=== PATIENT | female | born 1945 | race Caucasian/White ===

== ENCOUNTER 2023-05-10 09:46 | Inpatient (IN) | payer OTHER, SELFPAY ==
[2023-05-08] VITALS (14 sets, daily range): BP systolic 123–156; BP diastolic 71–105; BMI 28.0; BMI 26.6
[2023-05-08 10:52] LABS: Glucose - Point of Care 140 mg/dl (70-99)
[2023-05-08 11:24] LABS: % Basophils 0.6 % (0-2); % Eosinophils 0.3 % (0-6); % Immature Granulocytes 0.5 % (0-0.5); % Lymphocytes 5.9 % (20.5-51.1); % Monocytes 8.4 % (1.7-9.3); % Neutrophils 84.3 % (42.2-75.2); Absolute Basophils 0.1 10^3/uL (0-0.2); Absolute Immature Granulocytes 0.1 10^3/uL (0-0.05); Absolute Lymphocytes 0.6 10^3/uL (1.2-3.4); Absolute Monocytes 0.8 10^3/uL (0.1-0.6); Hematocrit 35.4 % (37.0-47.0); Hemoglobin 12.7 g/dL (12.0-16.0); Mean Corp Hgb Conc. 35.9 g/dL (33.0-37.0); Mean Corpuscular Volume 94.9 fL (81.0-99.0); Mean Platelet Volume 9.4 fL (7.4-10.4); Nucleated Red Blood Cells % 0 %; Platelet Count 250 10^3/uL (130-400); Red Blood Cell Count 3.73 10^6/uL (4.20-5.40); Red Cell Dist. Width 11.9 % (11.5-14.5); White Blood Cell Count 9.5 10^3/uL (4.8-10.8)
[2023-05-08 11:29] LABS: Lactic Acid 1.1 mmol/L (0.7-2.0)
[2023-05-08 11:30] LABS: ALT (SGPT) 16 U/L (0-35); AST (SGOT) 32 U/L (14-36); Albumin 4.4 g/dl (3.5-5.0); Alkaline Phosphatase 67 U/L (38-126); Blood Urea Nitrogen 12 mg/dl (7-17); Calcium 9.1 mg/dl (8.4-10.2); Carbon Dioxide 27 mmol/L (22-30); Chloride 93 mmol/L (98-107); Estimated Creatinine Clearance 51 ml/min; Glucose 133 mg/dl (70-99); Potassium 3.9 mmol/L (3.5-5.1); Sodium 127 mmol/L (135-145); Total Bilirubin 0.8 mg/dl (0.2-1.3); Total Protein 7.1 g/dl (6.3-8.2); eGFR > 60.00
[2023-05-08 11:31] LABS: COVID-19 Antigen Positive (Negative)
[2023-05-08 11:36] LABS: INR 0.97; PT 12.6 Sec (11.4-14.6)
--- NOTE | 2023-05-08 11:47 | ED.GENMED ---
History of Present Illness
General
Chief Complaint: Weakness
Time Seen by Provider: 05/08/23 10:38
Travel History
Have you had any contact with someone who has COVID-19?: No
Do you have any symptoms of coronavirus? Fever > 100 degrees, chills, cough, shortness of breath, sore throat, loss of taste or smell, muscle aches, or headache?: Yes
Symptoms:: 100.6
History of Present Illness
History of Present Illness:
78-year-old female with history of hypertension hyperlipidemia, and mitral valve prolapse presents to the emergency department via EMS from [facility] due to generalized weakness and intermittent confusion over the past several
days. No reported chest pain or shortness of breath. The patient is noted to be febrile on arrival. She is generally a poor historian and is unable to give me any details regarding her symptoms. According to her family she does have some mild
baseline confusion but is acutely worse in the past 48 hours.
Past History
Past History
ED Past Medical History: Other (Hyperlipidemia, hypertension, chronic bronchitis, diverticulosis, irritable bowel syndrome, kidney stones, osteoarthritis, colon polyps, ovarian cysts, urinary tract infection, and C. difficile, mitral bowel prolapse )
ED Past Surgical History: Appendectomy and Other (Multiple bowel resections)
Social History
Tobacco: Non-smoker
Alcohol: None
Drug: None
Personal:
Living: with family
Employment: Retired
Family History
Family History: Hypertension
Review of Systems
Review of Systems
Allergies reviewed?: Yes
All Other Systems: ROS reviewed and negative except as documented in HPI and ROS
Phy Exam
Physical Exam
Physical Exam:
GEN: Well appearing, NAD, WDWN
HEENT: Oral mucosa moist, no scleral icterus
Cardiac: Regular rate and rhythm, no murmurs
Lung: No respiratory distress, no tachypnea, lungs clear to auscultation bilaterally
MSK: No gross deformity or injuries
Skin: Good color, no pallor or jaundice, no rashes
Neuro: Alert, oriented to place, disoriented to time and events, follows commands, moves all extremities without restriction
Psych: Calm, cooperative
Course
Orders/Labs/Results
Orders:
Orders
05/08/23 10:48
Electrocardiogram (*1) Urgent
Reason for Study: Other
Other Reason for Exam: sepsis
EKG- Treatment ONCE
Straight cath- Treatment ONCE
Acetaminophen [Tylenol] 650 mg PO NOW STA
CR Chest - 2 Views Urgent
Comment:
Reason For Exam: sepsis
05/08/23 10:49
CT Head W/o Iv Contrast Urgent
Comment:
Reason For Exam: AMS
05/08/23 11:05
Complete Blood Count/With Diff Urgent
Comprehensive Metabolic Panel Urgent
Lactic Acid Q4H
Comment: CANCEL 2nd LACTIC ACID IF 1st LACTIC ACID IS LESS THAN 2
Prothrombin Time Urgent
Serum Osmolality Urgent
Comment: ADD ON
Blood Culture Q30M
BRANDON Source: Blood/Venous
Specimen Description:
05/08/23 11:09
COVID-19 Antigen Urgent
Source: Nasal Swab
Influenza A+B Rapid Molecular Urgent
BRANDON Source: Nasal Swab
Specimen Description:
05/08/23 12:14
Add On- LAB Urgent
Tests Added?: serum osmolality
05/08/23 12:29
Urinalysis Reflex To Culture Urgent
Date Specimen was Collected: 05/08/23
Time Specimen was Collected: 11:59
Urine Microscopic Reflex Cult Urgent
Blood Culture Q30M
BRANDON Source: Blood/Venous
Specimen Description:
Urine Culture Urgent
BRANDON Source: U
Specimen Description:
Date Specimen was Collected: 05/08/23
Time Specimen was Collected: 11:59
05/08/23 13:05
Acetaminophen [Tylenol] 650 mg .ROUTE .STK-MED ONE
05/08/23 13:06
Acetaminophen [Tylenol] 1,000 mg .ROUTE .STK-MED ONE
05/08/23 14:24
0.9% Sodium Chloride 500 ml [Nss] 500 ml IV BOLUS
05/08/23 15:13
Admit/Transfer Patient As Directed
Co-Sign Provider:
Level of Care: Observation services
Assign to:: Telemetry
Physician / Group: Mayda/Hospitalist
Diagnosis: Hyponatremia, COVID-19
Reason for Telemetry: Arrhythmia
Date to Stop Telemetry: 05/11/23
Time to Stop Telemetry: 11:00
05/08/23 15:17
Code Status As Directed
Resuscitation Status: Full Code
05/11/23 11:00
DC Protocol for Telemetry ONCE
Abnormal Lab Results
05/08/23 05/08/23 05/08/23
10:50 11:05 11:09
RBC 3.73 L 10^6/uL
(4.20-5.40)
Hct 35.4 L %
(37.0-47.0)
MCH 34.0 H pg
(27.0-31.0)
Abs Immat Gran (auto) 0.1 H 10^3/uL
(0-0.05)
Absolute Neuts (auto) 8.0 H 10^3/uL
(1.4-6.5)
Absolute Lymphs (auto) 0.6 L 10^3/uL
(1.2-3.4)
Absolute Monos (auto) 0.8 H 10^3/uL
(0.1-0.6)
Neutrophils % 84.3 H %
(42.2-75.2)
Lymphocytes % 5.9 L %
(20.5-51.1)
Sodium 127 L mmol/L
(135-145)
Chloride 93 L mmol/L
(98-107)
Glucose 133 H mg/dl
(70-99)
Serum Osmolality 272 L mOsm/kg
(275-300)
Urine Ketones
Ur Occult Blood Reflex
Urine Nitrite (Reflex)
Urine RBC
Urine Bacteria (Reflex)
SARS-CoV-2 Antigen Positive A
(Negative)
POC Glucose 140 H mg/dl
(70-99)
05/08/23
12:29
RBC
Hct
MCH
Abs Immat Gran (auto)
Absolute Neuts (auto)
Absolute Lymphs (auto)
Absolute Monos (auto)
Neutrophils %
Lymphocytes %
Sodium
Chloride
Glucose
Serum Osmolality
Urine Ketones 1+ A
(Negative)
Ur Occult Blood Reflex Trace A
(Negative)
Urine Nitrite (Reflex) Positive A
(Negative)
Urine RBC 3-6 A /HPF
(0-2)
Urine Bacteria (Reflex) Many A
(Negative)
SARS-CoV-2 Antigen
POC Glucose
05/08/23 11:05
05/08/23 11:05
Vital Signs
Initial and Last Documented VS:
Initial Vital Signs
BP
144/79
05/08/23 10:39
Last Documented Vital Signs
Temp Pulse Resp BP Pulse Ox
98.7 F 75 16 128/76 97
05/08/23 15:33 05/08/23 15:45 05/08/23 15:45 05/08/23 15:00 05/08/23 15:33
MDM/Problems Addressed
MDM/Problems Addressed:
78-year-old female presents with generalized weakness and confusion. She is found to be COVID-positive as well as hyponatremic. Hyponatremia appears to be acute, likely secondary to poor p.o. intake in the setting of COVID. Due to her acute
encephalopathy and hyponatremia we will admit to the hospitalist service for further management. Do not feel that there is any indication for hypertonic saline at this time, she is not hypoxic thus there is no indication for steroids in the setting
of acute COVID infection
Comment
Comment:
EKG independently interpreted by me shows normal sinus rhythm at a rate of [address] depressions, however patient motion artifact severely limits interpretation
Chest x-ray independently interpreted by me shows no acute cardiopulmonary abnormalities
*Critical Care Note
Total Time (30-74mins, 75-104mins- exclusive of procedures): Not Applicable
ED Attending Note
-
Portions of this chart may have been created with voice recognition software.� Occasional wrong word or��sound alike� substitutions may have occurred due to the inherent limitations of voice recognition software.
Discharge Plan
Departure
Patient Disposition: Admit
Date of Disposition: 05/08/23
Time of Disposition: 12:52
Admit to: Med/Surg
Presentation/result/management discussed w/ accepting MD/DO: Hospitalist
Discharge Problem:
Acute hyponatremia, COVID-19
Interventions
Interventions:
*Risk Screen - Suicide Last Done: 05/08/23 15:33
*General Assessment Last Done: 05/08/23 10:42
*Neglect/Abuse Screening Last Done: 05/08/23 12:00
ED- Fall Risk Assessment Last Done: 05/08/23 12:00
*ED COVID-19 Vaccine History Last Done: 05/08/23 10:42
ED- Cardiac Assessment Last Done: 05/08/23 15:33
ED- Neurological Assessment Last Done: 05/08/23 15:33
ED- Pulmonary Assessment Last Done: 05/08/23 15:33
[2023-05-08 12:37] LABS: Urine Albumin Negative (Neg - Trace); Urine Bilirubin Negative (Negative); Urine Character Slightly Cloudy (Clear); Urine Color Yellow; Urine Glucose Negative (Negative); Urine Ketone 1+ (Negative); Urine Leukocyte Negative (Negative); Urine Nitrite Positive (Negative); Urine Occult Blood Trace (Negative); Urine Urobilinogen Negative (Neg - 1+)
[2023-05-08 12:41] LABS: Osmolality Serum 272 mOsm/kg (275-300)
[2023-05-08 12:46] LABS: Urine Bacteria Many (Negative); Urine White Cell 0-2 /HPF (0-5)
[2023-05-08] MEDS: TYLENOL 650 MG PO (13:08)
--- NOTE | 2023-05-08 14:04 | HPS.HSE ---
Family Physician
-
Family Physician: Kwasi Dunn
Chief Complaint
-
weakness
History of Present Illness
The patient is an 78 yo woman with PMH significant for HLD, HTN, IBS, OA, MVP, hypothyroidism, presenting to the ED from [facility] due to generalized weakness and intermittent confusion over the past several days. Mild baseline
confusion per family, though worse in the past 48 hours. The patient said she is being treated outpatient for UTI and has had 1 day of treatment; she does not recall with what medication. She had an episode of watery diarrhea today x 1, no n/v.
She's had some difficulty with urination. No CP, no SOB, no congestion, she has fever in ED. No DELEON. Positive for decrease appetite and decreased oral intake.
Medical History
Past Medical History
Past Medical History: Reports GERD, HTN, Hypercholesterolemia, Hypothyroidism and Other (IBS-D, chronic bronchitis, diverticulosis, nephrolithiasis, OA, colon polyps, MVP, bowel obstruction, C. Difficile, anemia, anxiety)
Past Surgical History: Reports Appendectomy, Bowel Resection, Cholecystectomy, Gynocological, Orthopedic and Tonsilectomy
Social History
Tobacco: Former Smoker
Alcohol: Occasional
Personal:
Living: With Family
Family History
Family History: Not pertinent
Allergies / Home Medications
Allergies reflects when Allergies were last updated in [email or web address].
Home Medications with original date entered in [email or web address]
Allergy/Medication List:
Allergies
Allergy/AdvReac Type Severity Reaction Status Date / Time
duloxetine [From Cymbalta] Allergy Nausea / Verified 06/17/20 16:26
Vomiting
metronidazole [From Flagyl] Allergy Rash, Verified 06/17/20 16:26
VOMITING
Metronidazole HCl Allergy Rash, Verified 06/17/20 16:26
[From Flagyl] vomiting
pantoprazole Allergy Hives Verified 06/17/20 16:26
Sulfa (Sulfonamide Allergy Hives, Verified 06/17/20 16:26
Antibiotics) vomiting
Home Medications
amlodipine 5 mg tablet 5 mg PO HS Blood pressure 06/23/12
simvastatin 20 mg tablet 20 mg PO HS High cholesterol 06/23/12
L.acidoph, paracasei,B. lactis 10 billion cell capsule 1 ea PO DAILY Gastrointestinal issue 05/20/17
acetaminophen 500 mg tablet (Tylenol Extra Strength) 1,000 mg PO Q6H PRN mild pain 05/20/17
levothyroxine 75 mcg tablet 75 mcg PO DAILY Thyroid 05/20/17
temazepam 30 mg capsule (Restoril) 30 mg PO HS Sleep 05/20/17
calcium carbonate 600 mg calcium (1,500 mg) tablet 600 mg PO BID Supplement 09/12/19
cyanocobalamin (vitamin B-12) 1,000 mcg tablet 1,500 mcg PO DAILY Supplement 09/12/19
loperamide 2 mg capsule 2 mg PO Q6HPRN PRN diarrhea 06/20/20
famotidine 40 mg tablet 40 mg PO HS 05/08/23
Review of Systems
-
A 12 point ROS was completed and negative except as noted: Yes
Physical Exam
Vital Signs
Vital Signs
Temp Pulse Resp BP Pulse Ox
100.6 F H 92 15 129/84 94
05/08/23 10:42 05/08/23 13:30 05/08/23 13:30 05/08/23 13:00 05/08/23 13:15
Physical Exam
General: No Apparent Distress, Comfortable and Conversant
HEENT: NormoCephalic, Anicteric and Moist mucous membranes
Respiratory: Clear
Cardiac: S1/S2 and Regular Rhythm
GI: Soft, Non Tender, Non Distended and Normal Bowel Sounds
Musculoskeletal: No Clubbing, No Cyanosis and No Edema
Skin: Warm and Dry
Neuro: Awake, Alert and Oriented
Psych: Calm
Laboratory Results
-
05/08/23 11:05
05/08/23 11:05
Laboratory Results
PT 12.6 Sec (11.4-14.6) 05/08/23 11:05
INR 0.97 05/08/23 11:05
Lactic Acid 1.1 mmol/L (0.7-2.0) 05/08/23 11:05
Total Bilirubin 0.8 mg/dl (0.2-1.3) 05/08/23 11:05
AST 32 U/L (14-36) 05/08/23 11:
ALT 16 U/L (0-35) 05/08/23 11:
Alkaline Phosphatase 67 U/L (38-126) 05/08/23 11:05
Data Reviewed
-
Diagnostic Radiology: Image Personally Visualized and interpreted and Report Reviewed by me (CXR no acute findings)
CT Scan: Report Reviewed by me (Head-no acute process , diffuse cortical atrophy)
Medical Tests (Nuc Med, Echo, EKG etc): Image Personally Visualized and interpreted and Report Reviewed by me (EKG - NSR, LVH, unchanged from prior)
Impression/Plan
-
IMPRESSION:The patient is an 78 yo woman with PMH significant for HLD, HTN, IBS, OA, MVP, hypothyroidism, presenting to the ED from [facility] due to generalized weakness and intermittent confusion over the past several days.
Mild baseline confusion per family, though worse in the past 48 hours. The patient said she is being treated outpatient for UTI and has had 1 day of treatment; she does not recall with what medication. She had an episode of watery diarrhea today x
1, no n/v. She's had some difficulty with urination. No CP, no SOB, no congestion, she has fever in ED. No DELEON. Positive for decrease appetite and decreased oral intake.
#Weakness, confusion, likely multifactorial due to COVID-19 and hyponatremia
-SARS CoV2 Antigen positive
-normal respiratory status, no indication for steroids
-symptoms started likely 5 + days ago, will not start Paxlovid
-supportive management
#Hyponatremia Na 127
-likely hypovolemic due to poor oral intake due to COVID
-IVF, gentle and repeat BMP tonight and tomorrow
#Acute encephalopathy, likely due to COVID and UTI
-IV Rocephin
-urine culture pending
-monitor clinically
#UTI
-nitrite positive, many bacteria
-cont IV Rocephin
Chronic medical conditions stable including:
#HTN
#HLD
#Hypothyroidism-check TSH
#IBS
#MVP
#ANDREW
#OA
DVT proph - Lovenox
Full Code
[2023-05-08] MEDS: NSS 500 IV (15:30)
--- NOTE | 2023-05-08 16:09 | CM ---
Spoke to son as phone number for spouse was incorrect. CM updated correct phone for spouse [phone].Patient's son listed in contacts was texted blank Observation letter.
PEr son patient and spouse live in [facility]. THey have 3 meals in dining room. Patient uses rollator.
PCP DR. Kwasi Manriquez
Pharmacy:[facility]
Patient admitted [facility]ON[facility] and son thinks she may have a UTI as she was having some mental status changes.
SOn reports his sister is a nurse.
In Past patient went to [facility] and [facility] home. SHe has had [facility] for therapy at home in past.
SPouse of patient has stroke 10 years ago and has some residual speech deficits.
PLAN:home may need home care.
[2023-05-08] MEDS: ROCEPHIN 1000 MG IV (16:34)
[2023-05-08] MEDS: STERILE WATER FOR INJECTION 10 ML IV (16:34)
[2023-05-08] MEDS: LIPITOR 10 MG PO (20:50)
[2023-05-08] MEDS: NORVASC 5 MG PO (20:50)
[2023-05-08] MEDS: PEPCID 40 MG PO (20:50)
[2023-05-08] MEDS: NSS 1000 IV (20:51)
[2023-05-08] MEDS: OSCAL CAL 500 500 MG PO (20:51)
[2023-05-08] MEDS: VITAMIN C 1000 MG PO (20:51)
[2023-05-08 20:57] LABS: Blood Urea Nitrogen 15 mg/dl (7-17); Calcium 8.9 mg/dl (8.4-10.2); Carbon Dioxide 26 mmol/L (22-30); Chloride 93 mmol/L (98-107); Estimated Creatinine Clearance 59 ml/min; Glucose 98 mg/dl (70-99); Potassium 4.1 mmol/L (3.5-5.1); Sodium 128 mmol/L (135-145); eGFR > 60.00
[2023-05-08] MEDS: RESTORIL 30 MG PO (22:26)
[2023-05-09] MEDS: SYNTHROID 75 MCG PO (06:27)
[2023-05-09] MEDS: NSS 1000 IV (06:27)
[2023-05-09 07:10] VITALS: BP 150/78
--- NOTE | 2023-05-09 08:23 | W.PN.HOSP.TC ---
Today's Communication/Plan
-
see bold
Assessment / Plan
Assessment / Plan
78 yo woman with PMH significant for HLD, HTN, IBS, OA, MVP, hypothyroidism, presenting to the ED from [facility] due to generalized weakness and intermittent confusion over the past several days. Mild baseline confusion per
family, though worse in the past 48 hours. The patient said she is being treated outpatient for UTI and has had 1 day of treatment; she does not recall with what medication. She had an episode of watery diarrhea today x 1, no n/v. She's had some
difficulty with urination. No CP, no SOB, no congestion, she has fever in ED. No DELEON. Positive for decrease appetite and decreased oral intake.
#Hyponatremia
Sodium 131 today, improved from 127 upon admission status post IV fluid
Fluid restrict, check a.m. cortisol, TSH
Trend sodium
#Acute urinary retention
She has a history of urinary retention requiring marie in the past
Insert Marie, already having bowel movements
#Acute coronavirus infection
+5 days prior to admission since 05/04, needs isolation through 05/13/23
She is not hypoxic, she is not short of breath, no indications for steroids/Paxlovid
Continue supportive care
#Acute urinary tract infection
Rocephin D2, follow-up urine culture
#Acute toxic metabolic encephalopathy
Supportive care, monitor
#Weakness
PT/OT
Chronic medical conditions stable - continue home meds:
#HTN
#HLD
#Hypothyroidism
#IBS
#MVP
#ANDREW
#OA
DVT proph - SQ Lovenox
Full Code
Updated on phone 05/09
Total time spent to see the patient on the floor, examine the patient, review data and lab results, discuss treatment plan with patient, nursing staff around 51 minutes.
Physical Exam
General: Frail, elderly, appears weak, no acute distress
HEENT: Normocephalic, Atraumatic, EOMI, MMM
Respiratory: Clear to Auscultation bilaterally
Cardiac: Normal S1/S2, Regular Rate and Rhythm
GI: Soft, Nontender, Nondistended, Normal Bowel Sounds
Extremities: No Clubbing, Cyanosis, or Edema
Anticipated Discharge: > 48 hours
Subjective/Interval History
-
Date of Service: May 09, 2023
Patient has a cough, denies shortness of breath. Reports dysuria, also having urinary retention.
Objective Data
-
Labs:
Laboratory Results
05/08/23 05/09/23
20:32 07:47
Sodium 128 L Pending
Potassium 4.1 Pending
Chloride 93 L Pending
Carbon Dioxide 26 Pending
BUN 15 Pending
Creatinine 0.7 Pending
Glucose 98 Pending
Calcium 8.9 Pending
Vital Signs:
Vital Signs
Temp Pulse Resp BP Pulse Ox
99.1 F 79 18 150/78 95
05/09/23 07:10 05/09/23 07:10 05/09/23 07:10 05/09/23 07:10 05/09/23 07:10
I&O
05/08/23 05/09/23 05/10/23
06:59 06:59 06:59
Intake Total 1225 / 1225
Output Total 990 / 990
Balance 235 / 235
[2023-05-09 08:37] LABS: Blood Urea Nitrogen 10 mg/dl (7-17); Calcium 9.1 mg/dl (8.4-10.2); Carbon Dioxide 28 mmol/L (22-30); Chloride 94 mmol/L (98-107); Estimated Creatinine Clearance 69 ml/min; Glucose 100 mg/dl (70-99); Potassium 3.5 mmol/L (3.5-5.1); Sodium 131 mmol/L (135-145); eGFR > 60.00
[2023-05-09] MEDS: VITAMIN B-12 1500 MCG PO (09:04)
[2023-05-09] MEDS: OSCAL CAL 500 500 MG PO ×2 (09:04→20:02)
[2023-05-09] MEDS: ZINC SULFATE 220 MG PO (09:04)
[2023-05-09] MEDS: TYLENOL 650 MG PO ×2 (09:04→20:02)
[2023-05-09] MEDS: VITAMIN D3 (cholecalciferol) 50 MCG PO (09:05)
[2023-05-09] MEDS: VITAMIN C 1000 MG PO ×2 (09:05→20:02)
[2023-05-09] MEDS: VISBIOME 1 CAP PO (09:05)
[2023-05-09 11:05] VITALS: BP 115/68
[2023-05-09] MEDS: KCL 20 MEQ PO (11:11)
[2023-05-09 14:49] VITALS: BP 117/78; PULSE 78; O2SAT 98
[2023-05-09 15:45] VITALS: BP 158/83
[2023-05-09] MEDS: STERILE WATER FOR INJECTION 10 ML IV (16:08)
[2023-05-09] MEDS: ROCEPHIN 1000 MG IV (16:08)
[2023-05-09] MEDS: LOVENOX 40 MG SC (17:55)
[2023-05-09 19:05] VITALS: BP 151/87
[2023-05-09] MEDS: PEPCID 40 MG PO (22:34)
[2023-05-09] MEDS: LIPITOR 10 MG PO (22:34)
[2023-05-09] MEDS: NORVASC 5 MG PO (22:34)
[2023-05-09] MEDS: RESTORIL 30 MG PO (22:34)
[2023-05-09 22:36] VITALS: BP 127/79
[2023-05-10] VITALS (8 sets, daily range): BP systolic 113–147; BP diastolic 66–82; PULSE 96; O2SAT 94
[2023-05-10] MEDS: SYNTHROID 75 MCG PO (06:35)
[2023-05-10 06:38] LABS: Hematocrit 36.1 % (37.0-47.0); Hemoglobin 12.7 g/dL (12.0-16.0); Mean Corp Hgb Conc. 35.2 g/dL (33.0-37.0); Mean Corpuscular Hgb 32.9 pg (27.0-31.0); Mean Corpuscular Volume 93.5 fL (81.0-99.0); Mean Platelet Volume 9.5 fL (7.4-10.4); Platelet Count 254 10^3/uL (130-400); Red Blood Cell Count 3.86 10^6/uL (4.20-5.40); Red Cell Dist. Width 11.9 % (11.5-14.5); White Blood Cell Count 5.5 10^3/uL (4.8-10.8)
[2023-05-10 07:00] LABS: Blood Urea Nitrogen 14 mg/dl (7-17); Calcium 8.9 mg/dl (8.4-10.2); Carbon Dioxide 27 mmol/L (22-30); Chloride 95 mmol/L (98-107); Estimated Creatinine Clearance 59 ml/min; Glucose 84 mg/dl (70-99); Magnesium 1.9 mg/dl (1.6-2.3); Phosphorus 3.8 mg/dl (2.5-4.5); Potassium 3.7 mmol/L (3.5-5.1); Sodium 129 mmol/L (135-145); eGFR > 60.00
[2023-05-10 07:25] LABS: Cortisol, Random 10.6 ug/dl; TSH Reflex To Free T4 3.23 uIU/ml (0.47-4.68)
--- NOTE | 2023-05-10 07:33 | W.PN.HOSP.TC ---
Today's Communication/Plan
-
Continue to monitor in acute care setting as remains febrile
Continued hyponatremiaWill obtain urine's sodium and creatinine and osmolality
PT/OT
Assessment / Plan
Assessment / Plan
78 yo woman with PMH significant for HLD, HTN, IBS, OA, MVP, hypothyroidism, presenting to the ED from [facility] due to generalized weakness and intermittent confusion over the past several days. Mild baseline confusion per
family, though worse in the past 48 hours. The patient said she is being treated outpatient for UTI and has had 1 day of treatment; she does not recall with what medication. She had an episode of watery diarrhea today x 1, no n/v. She's had some
difficulty with urination. No CP, no SOB, no congestion, she has fever in ED. No DELEON. Positive for decrease appetite and decreased oral intake.
#Hyponatremia
Sodium 131 today, improved from 127 upon admission status post IV fluid
Fluid restrict continues, check a.m. cortisol, TSH both of which were normal
Trend sodium remains trended down to 129
#Acute urinary retention
She has a history of urinary retention requiring marie in the past
Insert Marie, already having bowel movements
#Acute coronavirus infection
+5 days prior to admission since 05/04, needs isolation through 05/13/23
-Based on my history of the patient's symptoms only started 5 days ago which would be May 05
-Would stay here with continued fever
She is not hypoxic, she is not short of breath, no indications for steroids/Paxlovid
Continue supportive care
#Acute urinary tract infection
Rocephin D2, follow-up urine culture/thus far no growth
#Acute toxic metabolic encephalopathy
Supportive care, monitor
#Weakness
PT/OT
Chronic medical conditions stable - continue home meds:
#HTN
#HLD
#Hypothyroidism
#IBS
#MVP
#ANDREW
#OA
DVT proph - SQ Lovenox
Full Code
Updated on phone 05/09
Total time spent to see the patient on the floor, examine the patient, review data and lab results, discuss treatment plan with patient, nursing staff around 51 minutes.
Physical Exam
General: Frail, elderly, appears weak, no acute distress
HEENT: Normocephalic, Atraumatic, EOMI, MMM
Respiratory: Clear to Auscultation bilaterally
Cardiac: Normal S1/S2, Regular Rate and Rhythm
GI: Soft, Nontender, Nondistended, Normal Bowel Sounds
Extremities: No Clubbing, Cyanosis, or Edema
Anticipated Discharge: 24 - 48 hours
Subjective/Interval History
-
Date of Service: May 10, 2023
Still with fever mildly productive cough no significant respiratory distress and not on oxygen.
Objective Data
-
Labs:
Laboratory Results
05/10/23
05:23
WBC 5.5
Hgb 12.7
Hct 36.1 L
Plt Count 254
Sodium 129 L
Potassium 3.7
Chloride 95 L
Carbon Dioxide 27
BUN 14
Creatinine 0.7
Glucose 84
Calcium 8.9
Vital Signs:
Vital Signs
Temp Pulse Resp BP Pulse Ox
98.6 F 81 16 130/79 95
05/10/23 03:31 05/10/23 03:31 05/10/23 03:31 05/10/23 03:31 05/10/23 03:31
I&O
05/09/23 05/10/23 05/11/23
06:59 06:59 06:59
Intake Total 1225 / 1225 400 / 400
Output Total 990 / 990 1075 / 1075
Balance 235 / 235 -675 / -675
Review of Systems
-
History Source: Patient
Constitutional: Reports Fever
Abdomen/GI: Reports No Symptoms
Breast: Reports No Symptoms
Genitourinary: Reports No Symptoms
Physical Exam
-
General: Well Developed
HEENT: Normocephalic
Respiratory: Clear to Auscultation
Cardiac: Regular Rhythm
GI: Soft
Skin: IV Access / Catheter Site
Psych: Calm
Data Reviewed
-
Total Time Spent with Patient (in minutes): 56
Labs: Labs Reviewed by me (White count 5.5 and stable hemoglobin 12.7 stable/sodium remains trended at 129/random cortisol and TSH were normal)
[2023-05-10] MEDS: VITAMIN D3 (cholecalciferol) 50 MCG PO (08:37)
[2023-05-10] MEDS: VITAMIN C 1000 MG PO ×2 (08:37→21:23)
[2023-05-10] MEDS: VISBIOME 1 CAP PO (08:37)
[2023-05-10] MEDS: OSCAL CAL 500 500 MG PO ×2 (08:37→21:23)
[2023-05-10] MEDS: TYLENOL 650 MG PO (08:37)
[2023-05-10] MEDS: ZINC SULFATE 220 MG PO (08:37)
[2023-05-10] MEDS: VITAMIN B-12 1500 MCG PO (08:37)
[2023-05-10 09:58] LABS: Osmolality Urine 528 mOsm/kg (300-900)
[2023-05-10 10:16] LABS: Urine Sodium 141 mmol/L (30-90)
[2023-05-10 11:01] LABS: Osmolality Serum 273 mOsm/kg (275-300)
[2023-05-10] MEDS: STERILE WATER FOR INJECTION 10 ML IV (16:49)
[2023-05-10] MEDS: ROCEPHIN 1000 MG IV (16:49)
[2023-05-10] MEDS: LOVENOX 40 MG SC (16:51)
--- NOTE | 2023-05-10 16:53 | CM ---
Spoke with and updated on OBS to Inpatient status. IMM explained and verbal documented. PT recommended for SNF. Will obtain preferences.
[2023-05-10] MEDS: LIPITOR 10 MG PO (21:22)
[2023-05-10] MEDS: RESTORIL 30 MG PO (21:23)
[2023-05-10] MEDS: NORVASC 5 MG PO (21:25)
[2023-05-10] MEDS: PEPCID 40 MG PO (21:25)
[2023-05-11 03:38] VITALS: BP 143/74
[2023-05-11] MEDS: SYNTHROID 75 MCG PO (05:21)
[2023-05-11 06:51] LABS: Blood Urea Nitrogen 22 mg/dl (7-17); Calcium 9.3 mg/dl (8.4-10.2); Carbon Dioxide 26 mmol/L (22-30); Chloride 92 mmol/L (98-107); Estimated Creatinine Clearance 69 ml/min; Glucose 97 mg/dl (70-99); Potassium 3.8 mmol/L (3.5-5.1); Sodium 128 mmol/L (135-145); eGFR > 60.00
[2023-05-11 08:00] VITALS: BP 140/74
--- NOTE | 2023-05-11 08:05 | W.PN.HOSP.TC ---
Today's Communication/Plan
-
Course of IV fluids today to replenish dehydration
Await final culture results of urine
Should be okay for discharge in a.m. hopefully
Assessment / Plan
Assessment / Plan
78 yo woman with PMH significant for HLD, HTN, IBS, OA, MVP, hypothyroidism, presenting to the ED from [facility] due to generalized weakness and intermittent confusion over the past several days. Mild baseline confusion per
family, though worse in the past 48 hours. The patient said she is being treated outpatient for UTI and has had 1 day of treatment; she does not recall with what medication. She had an episode of watery diarrhea today x 1, no n/v. She's had some
difficulty with urination. No CP, no SOB, no congestion, she has fever in ED. No DELEON. Positive for decrease appetite and decreased oral intake.
#Hyponatremia
Sodium 131 today, improved from 127 upon admission status post IV fluid
Fluid restrict continues, check a.m. cortisol, TSH both of which were normal
Trend sodium remains trended down to 129
-Sodium again dropped at 128 this morning and poor oral intake with a fractional excretion of less than 1% pointing to continued dehydration
-Will give a liter of fluid today and hope for discharge plan for tomorrow
#Acute urinary retention
She has a history of urinary retention requiring marie in the past
Insert Marie, already having bowel movements
#Acute coronavirus infection
+5 days prior to admission since 05/04, needs isolation through 05/13/23
-Based on my history of the patient's symptoms only started 5 days ago which would be May 05
-Would stay here with continued fever/afebrile x 24 hours as of today May 11
She is not hypoxic, she is not short of breath, no indications for steroids/Paxlovid
Continue supportive care
#Acute urinary tract infection
Rocephin D4, follow-up urine culture/gram-negative bacilli
-Will await species prior to discharge
#Acute toxic metabolic encephalopathy
Supportive care, monitor
#Weakness
PT/OT
Chronic medical conditions stable - continue home meds:
#HTN
#HLD
#Hypothyroidism
#IBS
#MVP
#ANDREW
#OA
DVT proph - SQ Lovenox
Full Code
Updated on phone 05/09
Total time spent to see the patient on the floor, examine the patient, review data and lab results, discuss treatment plan with patient, nursing staff around 51 minutes.
Physical Exam
General: Frail, elderly, appears weak, no acute distress
HEENT: Normocephalic, Atraumatic, EOMI, MMM
Respiratory: Clear to Auscultation bilaterally
Cardiac: Normal S1/S2, Regular Rate and Rhythm
GI: Soft, Nontender, Nondistended, Normal Bowel Sounds
Extremities: No Clubbing, Cyanosis, or Edema
Anticipated Discharge: 24 - 48 hours
Subjective/Interval History
-
Date of Service: May 11, 2023
States that she feels okay no respiratory distress no cough but still not eating very well and poor oral intake
Objective Data
-
Labs:
Laboratory Results
05/11/23
05:18
Sodium 128 L
Potassium 3.8
Chloride 92 L
Carbon Dioxide 26
BUN 22 H
Creatinine 0.6
Glucose 97
Calcium 9.3
Vital Signs:
Vital Signs
Temp Pulse Resp BP Pulse Ox
98.9 F 82 16 143/74 91
05/11/23 03:38 05/11/23 03:38 05/11/23 03:38 05/11/23 03:38 05/11/23 03:38
I&O
05/10/23 05/11/23 05/12/23
06:59 06:59 06:59
Intake Total 400 / 400 840 / 840
Output Total 1075 / 1075 900 / 900
Balance -675 / -675 -60 / -60
Review of Systems
-
History Source: Patient
Constitutional: Reports No Appetite
EENT: Reports No Symptoms Reported
Respiratory: Reports No Symptoms
Cardiac: Reports No Symptoms
Abdomen/GI: Reports No Symptoms
Physical Exam
-
General: Well Developed
HEENT: Normocephalic
Respiratory: Clear to Auscultation
Cardiac: Regular Rhythm
Musculoskeletal: No Clubbing
Skin: Warm
Neuro: Awake, Alert, Oriented and AO x 3
Psych: Calm
Data Reviewed
-
Total Time Spent with Patient (in minutes): 45
Labs: Labs Reviewed by me (Sodium remains depressed at 128/urine creatinine 87 with a urine osmolality of 528/fractional secretion of sodium is measured at less than 1% at 0.88)
[2023-05-11] MEDS: ZINC SULFATE 220 MG PO (09:24)
[2023-05-11] MEDS: OSCAL CAL 500 500 MG PO ×2 (09:24→21:30)
[2023-05-11] MEDS: VISBIOME 1 CAP PO (09:24)
[2023-05-11] MEDS: VITAMIN C 1000 MG PO ×2 (09:25→21:31)
[2023-05-11] MEDS: VITAMIN D3 (cholecalciferol) 50 MCG PO (09:25)
[2023-05-11] MEDS: VITAMIN B-12 1500 MCG PO (09:25)
[2023-05-11] MEDS: NSS 1000 IV (09:29)
[2023-05-11 11:33] VITALS: BP 134/77
[2023-05-11 15:30] VITALS: BP 138/83
--- NOTE | 2023-05-11 16:08 | CM ---
Addendum entered by Meño Schneider 05/11/23 16:14:
Correction to below note...patient to call CM with preferences on 05/12/23. BARRIER: COVID status.
Original Note:
PT has recommended SNF for skilled services and rehab. Patient in Covid isolation. This CM called and spoke with for preferences. He preferred I speak with patient. Met with patient and explained PT recommendation and Medicare.gov
website. Gave her list of multiple facilities within the [facility]. CM asked her to choose preferences and call CM on 05/12/22 with preferences and any questions she may have.
[2023-05-11] MEDS: LOVENOX 40 MG SC (17:22)
[2023-05-11] MEDS: STERILE WATER FOR INJECTION 10 ML IV (17:23)
[2023-05-11] MEDS: ROCEPHIN 1000 MG IV (17:23)
[2023-05-11] MEDS: RESTORIL 30 MG PO (21:20)
[2023-05-11] MEDS: LIPITOR 10 MG PO (21:31)
[2023-05-11] MEDS: PEPCID 40 MG PO (21:31)
[2023-05-11] MEDS: NORVASC 5 MG PO (21:32)
[2023-05-11 23:35] VITALS: BP 115/63
[2023-05-12] MEDS: NSS 1000 IV (01:06)
[2023-05-12] MEDS: SYNTHROID 75 MCG PO (06:22)
[2023-05-12 06:33] LABS: Blood Urea Nitrogen 11 mg/dl (7-17); Calcium 9.5 mg/dl (8.4-10.2); Carbon Dioxide 29 mmol/L (22-30); Chloride 95 mmol/L (98-107); Estimated Creatinine Clearance 69 ml/min; Glucose 91 mg/dl (70-99); Potassium 3.6 mmol/L (3.5-5.1); Sodium 132 mmol/L (135-145); eGFR > 60.00
--- NOTE | 2023-05-12 07:55 | W.DS.TRANS ---
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
-
Discharge Instructions:
Discharge Diagnosis/Procedures COVID-19 infection
Symptomatic hyponatremia from hypovolemia
Urinary tract infection with E. coli
Diet As tolerated
Activity No restrictions
Additional Activity Continue COVID isolation with usage of N95 or
equivalent mask for the next 2 days around
family members
Driving Restrictions As prior to admission
Instructions:
Stand-Alone Forms:
Changes to Home Medications: Yes
Discharge Medications:
DC Medications w/original date entered in [employer].
amlodipine 5 mg tablet 5 mg PO HS Blood pressure 06/23/12
simvastatin 20 mg tablet 20 mg PO HS High cholesterol 06/23/12
L.acidoph, paracasei,B. lactis 10 billion cell capsule 1 ea PO DAILY Gastrointestinal issue 05/20/17
acetaminophen 500 mg tablet (Tylenol Extra Strength) 1,000 mg PO Q6H PRN mild pain 05/20/17
levothyroxine 75 mcg tablet 75 mcg PO DAILY Thyroid 05/20/17
temazepam 30 mg capsule (Restoril) 30 mg PO HS Sleep 05/20/17
calcium carbonate 600 mg calcium (1,500 mg) tablet 600 mg PO BID Supplement 09/12/19
cyanocobalamin (vitamin B-12) 1,000 mcg tablet 1,500 mcg PO DAILY Supplement 09/12/19
loperamide 2 mg capsule 2 mg PO Q6HPRN PRN diarrhea 06/20/20
famotidine 40 mg tablet 40 mg PO HS Gastrointestinal Issue 05/08/23
cephalexin 500 mg capsule 500 mg PO BID Infection #7 caps 05/12/23
Home Medication Changes
cephalexin 500 mg capsule 500 mg PO BID Infection #7 caps 05/12/23
Pending Results: No
Total time spent discharging patient (in min): 38
[2023-05-12 08:16] VITALS: BP 123/88
[2023-05-12] MEDS: ZINC SULFATE 220 MG PO (09:36)
[2023-05-12] MEDS: VITAMIN B-12 1500 MCG PO (09:36)
[2023-05-12] MEDS: VITAMIN C 1000 MG PO ×2 (09:37→21:58)
[2023-05-12] MEDS: OSCAL CAL 500 500 MG PO ×2 (09:37→21:57)
[2023-05-12] MEDS: VITAMIN D3 (cholecalciferol) 50 MCG PO (09:37)
[2023-05-12] MEDS: VISBIOME 1 CAP PO (09:37)
[2023-05-12] MEDS: NSS IV (09:44)
--- NOTE | 2023-05-12 11:28 | W.DCSUMMARY ---
Addendum entered and electronically signed by Tarik Yusuf MD 05/14/23 11:09:
This is an addendum to the prior discharge summary dictated on 12 May patient is now to come off COVID isolation on this date 14 May and this should not be an impediment to disposition to a subacute nursing facility the patient is
symptom-free and has been afebrile for days no respiratory complaints nor requirement for oxygen. Her course of IV fluids has been discontinued due to replenishing hypovolemic hyponatremia there is resolved. She has continued to involved with PT
OT modalities and is now requiring minimal assistance for safety due to occasional right-sided lean she would thusly is still benefit from some continued physical therapy services for mobility and safety. Recommendation still for a skilled rehab
facility awaiting disposition/please refer to my progress note of today for further details I have written a discharge order placed
Original Note:
Discharge Summary
Discharge Data
Date of Admission: 05/10/23
Date of Discharge: 05/12/23
Total time spent discharging patient (in min): 56
-
Pending Results: No
Hospital Course
78-year-old female with a significant history of hyperlipidemia hypertension, IBS, mitral valve prolapse and hypothyroidism she lives independently at [facility] but presented with generalized weakness intermittent confusion for the last several
days this is especially worse in the last 48 hours leading up to her presentation subsequent evaluation in the ED noted that patient tested positive for coronavirus she was not hypoxic she was not febrile and did not manifest significant
leukocytosis. She was however found to have significant hyponatremia felt to be from low volume state and poor oral intake she was admitted she was placed on IV fluids she did not meet criteria for antiviral therapy of any kind including Paxlovid
and did not meet criteria for IV steroids/she has been assessed by physical therapy/after initial course of IV fluids patient continued to have poor oral intake and weakness reassessment electrolyte status continues show hypovolemic hyponatremia and
a fractional excretion of sodium was diminished at less than 1% consistent with dehydration still and she was given another course of IV fluids with resolution of hyponatremia. Per case management still looking for a subacute nursing facility for
her as she cannot return to independent living apparently.
Discharge Plan
-
Patient Disposition: Home (Routine Discharge)
Discharge Diagnosis/Procedures: COVID-19 infection
Symptomatic hyponatremia from hypovolemia
Urinary tract infection with E. coli
Diet: As tolerated
Activity: No restrictions
Additional Activity: Continue COVID isolation with usage of N95 or equivalent mask for the next 2 days around family members
Driving Restrictions: As prior to admission
Referrals:
Kwasi Dunn, DO [Family Provider] - in less than 1 week
Prescriptions:
New
cephalexin 500 mg capsule
500 mg PO BID Qty: 7 0RF
Continued
amlodipine 5 MG tablet
5 mg PO HS
simvastatin 20 MG tablet
20 mg PO HS
acetaminophen [Tylenol Extra Strength] 500 MG tablet
1,000 mg PO Q6H PRN (Reason: mild pain)
levothyroxine 75 MCG tablet
75 mcg PO DAILY
temazepam [Restoril] 30 MG capsule
30 mg PO HS
Patient Comments:
05/08/2023: last filled 04/08/23, 30 tabs for 30 days from [facility]
L.acidoph, paracasei,B. lactis 1 EACH capsule
1 ea PO DAILY
cyanocobalamin (vitamin B-12) 1,000 MCG tablet
1,500 mcg PO DAILY
calcium carbonate 600 MG tablet
600 mg PO BID
loperamide 2 MG capsule
2 mg PO Q6HPRN PRN (Reason: diarrhea) 0RF
famotidine 40 mg tablet
40 mg PO HS
Discharge Orders:
Discharge Patient (As Directed); Ordered 05/12/23
Ordered By: Tarik Yusuf
--- NOTE | 2023-05-12 11:37 | W.PN.HOSP.TC ---
Today's Communication/Plan
-
Patient is stable for discharge
I am told by case management that still looking for a subacute nursing facility bed as cannot return to independent living
She can probably come off COVID isolation in 24 hours
Transition from Rocephin to cephalexin for UTI
Assessment / Plan
Assessment / Plan
78 yo woman with PMH significant for HLD, HTN, IBS, OA, MVP, hypothyroidism, presenting to the ED from [facility] due to generalized weakness and intermittent confusion over the past several days. Mild baseline confusion per
family, though worse in the past 48 hours. The patient said she is being treated outpatient for UTI and has had 1 day of treatment; she does not recall with what medication. She had an episode of watery diarrhea today x 1, no n/v. She's had some
difficulty with urination. No CP, no SOB, no congestion, she has fever in ED. No DELEON. Positive for decrease appetite and decreased oral intake.
#Hyponatremia /improved
S=, improved from 127 upon admission status post IV fluid
Fluid restrict continues, check a.m. cortisol, TSH both of which were normal
Trend sodium remains trended down to 129
-Sodium again dropped at 128 this morning and poor oral intake with a fractional excretion of less than 1% pointing to continued dehydration
-Sodium now 132 after IV fluids /
#Acute urinary retention
She has a history of urinary retention requiring marie in the past
Insert Marie, already having bowel movements/Marie catheter now out
#Acute coronavirus infection
+5 days prior to admission since 05/04, needs isolation through 05/13/23
-Based on my history of the patient's symptoms only started 5 days ago which would be May 05
-Would stay here with continued fever/afebrile x 24 hours as of today May 11
She is not hypoxic, she is not short of breath, no indications for steroids/Paxlovid
Continue supportive care
#Acute urinary tract infection
Rocephin D4, follow-up urine culture/gram-negative bacilli
-Will await species prior to discharge
-Will transition to cephalexin today to complete another 3 days
#Acute toxic metabolic encephalopathy
Supportive care, monitor
#Weakness
PT/OT
Chronic medical conditions stable - continue home meds:
#HTN
#HLD
#Hypothyroidism
#IBS
#MVP
#ANDREW
#OA
DVT proph - SQ Lovenox
Full Code
Updated on phone 05/09
Total time spent to see the patient on the floor, examine the patient, review data and lab results, discuss treatment plan with patient, nursing staff around 51 minutes.
Physical Exam
General: Frail, elderly, appears weak, no acute distress
HEENT: Normocephalic, Atraumatic, EOMI, MMM
Respiratory: Clear to Auscultation bilaterally
Cardiac: Normal S1/S2, Regular Rate and Rhythm
GI: Soft, Nontender, Nondistended, Normal Bowel Sounds
Extremities: No Clubbing, Cyanosis, or Edema
Anticipated Discharge: Within 24 hours
Subjective/Interval History
-
Date of Service: May 12, 2023
Patient seems to be eating better and less weakness. May have been helped by the IV fluid she got yesterday.
Objective Data
-
Labs:
Laboratory Results
05/12/23
05:24
Sodium 132 L
Potassium 3.6
Chloride 95 L
Carbon Dioxide 29
BUN 11
Creatinine 0.6
Glucose 91
Calcium 9.5
Vital Signs:
Vital Signs
Temp Pulse Resp BP Pulse Ox
98.6 F 77 18 123/88 95
05/12/23 08:16 05/12/23 08:16 05/12/23 08:16 05/12/23 08:16 05/12/23 11:01
I&O
05/11/23 05/12/23 05/13/23
06:59 06:59 06:59
Intake Total 840 / 840 2820 / 2820
Output Total 900 / 900 2625 / 2625
Balance -60 / -60 195 / 195
Review of Systems
-
Unable to obtain full review of systems at this time due to: Dementia
History Source: Patient
All other systems: Reviewed and negative
Constitutional: Reports No Symptoms
EENT: Reports No Symptoms Reported
Respiratory: Reports No Symptoms
Physical Exam
-
General: Well Developed
HEENT: Normocephalic
Respiratory: Clear to Auscultation
Cardiac: Regular Rhythm
GI: Soft, Nontender and Nondistended
Genito-urinary: No Costovertebral Tender
Skin: Warm
Neuro: Awake and Alert
Psych: Confused
Data Reviewed
-
Total Time Spent with Patient (in minutes): 45
Labs: Labs Reviewed by me (Sodium up to 132/urine with E. coli UTI sensitivity reported and reviewed)
--- NOTE | 2023-05-12 12:48 | CM ---
Addendum entered by Meño Schneider 05/12/23 13:44:
Notified that patient will be discharged with marie catheter due to PVR. Nursing will educate and instruct on marie care. Patient is scheduled to follow-up with Dr. Dawn on 05/14/23.
Original Note:
PT recommended SNF after discharge. Patient has chosen [facility] as preference. Will send referral with additional. COVID is barrier.
--- NOTE | 2023-05-12 14:14 | CM ---
Addendum entered by Meño Schneider 05/12/23 14:22:
Spoke with Angeles in admissions at [facility]. They cannot accept patient until 05/19/23 due to active Covid status.
Patient will not go to [facility] due to a bad experience for her and her as patients. This CM spoke with daughter, Danielle Adhikari, who lives in [place] ([phone]). She confirmed bad experience at [facility]. She noted that patient
has periods of confusion when she speaks with her. Patient called other daughter at 2:00am this morning and told her she was transferred to [facility]. Son is Óscar and lives in the area # [phone]. Will continue to find SNF placement that will
accept Covid.
Original Note:
Addendum entered by Meño Schneider 05/12/23 13:44:
Original Note:
PT recommended SNF after discharge. Patient has chosen [facility] as preference. Will send referral with additional. COVID is barrier.
[2023-05-12] MEDS: STERILE WATER FOR INJECTION IV (14:16)
[2023-05-12 15:15] VITALS: BP 141/82; PULSE 81
[2023-05-12 15:44] VITALS: BP 152/92
[2023-05-12] MEDS: LOVENOX 40 MG SC (17:00)
[2023-05-12] MEDS: RESTORIL 30 MG PO (21:56)
[2023-05-12] MEDS: NORVASC 5 MG PO (21:57)
[2023-05-12] MEDS: PEPCID 40 MG PO (21:57)
[2023-05-12] MEDS: KEFLEX 500 MG PO (21:57)
[2023-05-12] MEDS: LIPITOR 10 MG PO (21:58)
[2023-05-12 23:10] VITALS: BP 102/53
[2023-05-12 23:30] VITALS: BP 126/84
--- NOTE | 2023-05-13 04:27 | PTCARENOTE ---
Pt has not voided all shift, bladder scanned for 310mL. Offered to assist pt up to the bedside commode, pt refusing at this time. Education provided covering risks of UTI, pt's hx of chronic urinary retention and personal hygiene in reference to UTI
prevention. Pt continues to refuse to get out of bed.
[2023-05-13] MEDS: SYNTHROID 75 MCG PO (06:25)
[2023-05-13 07:00] VITALS: BP 148/80
--- NOTE | 2023-05-13 07:17 | W.PN.HOSP.TC ---
Today's Communication/Plan
-
Patient has been stable for discharge and assisted living center she was she is going back to waiting on COVID isolation
Should be able to come off COVID isolation in next 24 hours
Medically stable for discharge since yesterday
Assessment / Plan
Assessment / Plan
78 yo woman with PMH significant for HLD, HTN, IBS, OA, MVP, hypothyroidism, presenting to the ED from [facility] due to generalized weakness and intermittent confusion over the past several days. Mild baseline confusion per
family, though worse in the past 48 hours. The patient said she is being treated outpatient for UTI and has had 1 day of treatment; she does not recall with what medication. She had an episode of watery diarrhea today x 1, no n/v. She's had some
difficulty with urination. No CP, no SOB, no congestion, she has fever in ED. No DELEON. Positive for decrease appetite and decreased oral intake.
#Hyponatremia /improved
S=, improved from 127 upon admission status post IV fluid
Fluid restrict continues, check a.m. cortisol, TSH both of which were normal
Trend sodium remains trended down to 129
-Sodium again dropped at 128 this morning and poor oral intake with a fractional excretion of less than 1% pointing to continued dehydration
-Sodium now 132 after IV fluids /
#Acute urinary retention
She has a history of urinary retention requiring marie in the past
Insert Marie, already having bowel movements/Marie catheter now out
#Acute coronavirus infection
+5 days prior to admission since 05/04, needs isolation through 05/13/23
-Based on my history of the patient's symptoms only started 5 days ago which would be May 05
-Would stay here with continued fever/afebrile x 24 hours as of today May 11
She is not hypoxic, she is not short of breath, no indications for steroids/Paxlovid
Continue supportive care
#Acute urinary tract infection
Rocephin D4, follow-up urine culture/gram-negative bacilli
-Will await species prior to discharge
-Will transition to cephalexin today to complete another 3 days
#Acute toxic metabolic encephalopathy
Supportive care, monitor
#Weakness
PT/OT
Chronic medical conditions stable - continue home meds:
#HTN
#HLD
#Hypothyroidism
#IBS
#MVP
#ANDREW
#OA
DVT proph - SQ Lovenox
Full Code
Updated on phone 05/09
Total time spent to see the patient on the floor, examine the patient, review data and lab results, discuss treatment plan with patient, nursing staff around 51 minutes.
Physical Exam
General: Frail, elderly, appears weak, no acute distress
HEENT: Normocephalic, Atraumatic, EOMI, MMM
Respiratory: Clear to Auscultation bilaterally
Cardiac: Normal S1/S2, Regular Rate and Rhythm
GI: Soft, Nontender, Nondistended, Normal Bowel Sounds
Extremities: No Clubbing, Cyanosis, or Edema
Anticipated Discharge: Within 24 hours
Subjective/Interval History
-
Date of Service: May 13, 2023
Doing okay appetite improved she is not very happy about [facility]'s decision to take her into assisted living and instead of back to independent living
Objective Data
-
Vital Signs:
Vital Signs
Temp Pulse Resp BP Pulse Ox
97.8 F 97 16 126/84 94
05/12/23 23:30 05/12/23 23:30 05/12/23 23:30 05/12/23 23:30 05/13/23 03:46
I&O
05/12/23 05/13/23 05/14/23
06:59 06:59 06:59
Intake Total 2820 / 2820 540 / 540
Output Total 2625 / 2625
Balance 195 / 195 540 / 540
Review of Systems
-
All other systems: Not reviewed unless documented
EENT: Reports No Symptoms Reported
Respiratory: Reports No Symptoms
Abdomen/GI: Reports No Symptoms
Physical Exam
-
General: Well Developed
HEENT: Normocephalic
Respiratory: Clear to Auscultation
Cardiac: Regular Rhythm
GI: Soft
Genito-urinary: No Costovertebral Tender
Data Reviewed
-
Total Time Spent with Patient (in minutes): 45
Labs: Labs Reviewed by me
[2023-05-13] MEDS: VITAMIN B-12 1500 MCG PO (09:26)
[2023-05-13] MEDS: VISBIOME 1 CAP PO (09:26)
[2023-05-13] MEDS: VITAMIN C 1000 MG PO ×2 (09:26→21:37)
[2023-05-13] MEDS: ZINC SULFATE 220 MG PO (09:26)
[2023-05-13] MEDS: KEFLEX 500 MG PO ×2 (09:29→21:36)
[2023-05-13] MEDS: OSCAL CAL 500 500 MG PO ×2 (09:29→21:37)
[2023-05-13] MEDS: VITAMIN D3 (cholecalciferol) 50 MCG PO (09:29)
[2023-05-13] MEDS: STERILE WATER FOR INJECTION IV (11:58)
[2023-05-13 15:00] VITALS: BP 121/77
[2023-05-13 15:04] VITALS: BP 121/77; PULSE 86; O2SAT 97
--- NOTE | 2023-05-13 15:35 | CM ---
Discharge plan of care is SNF. COVID is barrier. Discussed placement with daughter this am. Family does not want [facility] as they have had bad experiences there. She is looking at [facility]. [facility] does accept +Covid patients. Referral
has been sent. Called and left message for Cris in admissions. She was out of the office today. Will follow-up in am. Additional referrals forwarded but they are not accepting Covid+ patients. Patient's preference is [facility]. They will not accept
patient until 05/19/23 due to Covid.
[2023-05-13] MEDS: LOVENOX 40 MG SC (17:13)
[2023-05-13] MEDS: PEPCID 40 MG PO (21:37)
[2023-05-13] MEDS: NORVASC 5 MG PO (21:37)
[2023-05-13] MEDS: RESTORIL 30 MG PO (21:37)
[2023-05-13] MEDS: LIPITOR 10 MG PO (21:37)
[2023-05-13 23:28] VITALS: BP 128/71
[2023-05-14] MEDS: SYNTHROID 75 MCG PO (06:16)
[2023-05-14 07:10] VITALS: BP 134/69
--- NOTE | 2023-05-14 07:50 | W.PN.HOSP.TC ---
Today's Communication/Plan
-
Patient has been stable for discharge
Complete course of antibiotics today for UTI
Can come off COVID isolation today
Will place another discharge order in for today there should be no COVID isolation restrictions on her disposition
Assessment / Plan
Assessment / Plan
78 yo woman with PMH significant for HLD, HTN, IBS, OA, MVP, hypothyroidism, presenting to the ED from [facility] due to generalized weakness and intermittent confusion over the past several days. Mild baseline confusion per
family, though worse in the past 48 hours. The patient said she is being treated outpatient for UTI and has had 1 day of treatment; she does not recall with what medication. She had an episode of watery diarrhea today x 1, no n/v. She's had some
difficulty with urination. No CP, no SOB, no congestion, she has fever in ED. No DELEON. Positive for decrease appetite and decreased oral intake.
#Hyponatremia /improved
S=, improved from 127 upon admission status post IV fluid
Fluid restrict continues, check a.m. cortisol, TSH both of which were normal
Trend sodium remains trended down to 129
-Sodium now 132 after IV fluids /
#Acute urinary retention
She has a history of urinary retention requiring marie in the past
Insert Marie, already having bowel movements/Marie catheter now out
#Acute coronavirus infection
+5 days prior to admission since 05/04, needs isolation through 05/13/23
-Based on my history of the patient's symptoms only started 5 days ago which would be May 04
She is not hypoxic, she is not short of breath, no indications for steroids/Paxlovid
Continue supportive care/can come off isolation May 14
#Acute urinary tract infection
Rocephin D4, follow-up urine culture/gram-negative bacilli
-Will await species prior to discharge
-Will transition to cephalexin and can be discontinued after May
#Acute toxic metabolic encephalopathy
Supportive care, monitor
#Weakness
PT/OT
Chronic medical conditions stable - continue home meds:
#HTN
#HLD
#Hypothyroidism
#IBS
#MVP
#ANDREW
#OA
DVT proph - SQ Lovenox
Full Code
Updated on phone 05/09
Total time spent to see the patient on the floor, examine the patient, review data and lab results, discuss treatment plan with patient, nursing staff around 51 minutes.
Physical Exam
General: Frail, elderly, appears weak, no acute distress
HEENT: Normocephalic, Atraumatic, EOMI, MMM
Respiratory: Clear to Auscultation bilaterally
Cardiac: Normal S1/S2, Regular Rate and Rhythm
GI: Soft, Nontender, Nondistended, Normal Bowel Sounds
Extremities: No Clubbing, Cyanosis, or Edema
Anticipated Discharge: Within 24 hours
Subjective/Interval History
-
Date of Service: May 14, 2023
No complaints remains stable no respiratory issues ambulating
Objective Data
-
Vital Signs:
Vital Signs
Temp Pulse Resp BP Pulse Ox
98.1 F 72 18 128/71 95
05/13/23 23:28 05/13/23 23:28 05/13/23 23:28 05/13/23 23:28 05/13/23 23:28
I&O
05/13/23 05/14/23 05/15/23
06:59 06:59 06:59
Intake Total 540 / 540 1080 / 1080
Output Total 125 / 125
Balance 540 / 540 955 / 955
Data Reviewed
-
Total Time Spent with Patient (in minutes): 32
Labs: Labs Reviewed by me
[2023-05-14] MEDS: VITAMIN C 1000 MG PO (08:54)
[2023-05-14] MEDS: KEFLEX 500 MG PO (08:57)
[2023-05-14] MEDS: VITAMIN B-12 1500 MCG PO (08:57)
[2023-05-14] MEDS: VISBIOME 1 CAP PO (08:57)
[2023-05-14] MEDS: VITAMIN D3 (cholecalciferol) 50 MCG PO (08:57)
[2023-05-14] MEDS: ZINC SULFATE 220 MG PO (08:57)
[2023-05-14] MEDS: OSCAL CAL 500 500 MG PO (08:57)
[2023-05-14 11:03] VITALS: BP 120/75; PULSE 98
--- NOTE | 2023-05-14 15:06 | CM ---
Addendum entered by Meño Schneider 05/14/23 15:51:
Transport scheduled for 6:30pm.
Original Note:
Patient has been medically cleared for discharge to [facility] for senior care and rehab services. Patient needed auth through [employer]
Auth approved for level 1, 7 days-05/14/23 through to and including 05/20/23. NRD is 05/20/23. Auth # for facility is [id number]. Auth # for ambulance is [id number]. Phone # for follow-up reviews is Option # 5.
Nurse to Nurse report # [phone] and .
[2023-05-14 15:10] VITALS: BP 121/72
[2023-05-14] MEDS: STERILE WATER FOR INJECTION IV (16:27)
[2023-05-14] MEDS: LOVENOX SC (17:12)
== END 2023-05-14 19:31 | DRG 91 ==
LOC: 2 NORTH 09:46
PROVIDERS: Family Medicine; Physician Assistant; ADMITTING PHYSICIAN Internal Medicine; ATTENDING PHYSICIAN Internal Medicine; EMERGENCY PHYSICIAN Emergency Medicine; FAMILY PHYSICIAN Internal Medicine
DX: G92.8 Other toxic encephalopathy (principal); U07.1 COVID-19; G93.40 Encephalopathy, unspecified; E87.1 Hypo-osmolality and hyponatremia; N39.0 Urinary tract infection, site not specified; Z11.52 Encounter for screening for COVID-19; Z87.891 Personal history of nicotine dependence; I10 Essential (primary) hypertension; E03.9 Hypothyroidism, unspecified; I34.1 Nonrheumatic mitral (valve) prolapse; G47.33 Obstructive sleep apnea (adult) (pediatric); E78.00 Pure hypercholesterolemia, unspecified; E78.49 Other hyperlipidemia; K58.0 Irritable bowel syndrome with diarrhea; E86.1 Hypovolemia; B96.20 Unspecified Escherichia coli [E. coli] as the cause of diseases classified elsewhere
CPT/HCPCS: 70450; 71046; 80048; 80053; 81003; 81015; 82533; 82570; 82962; 83605; 83735; 83930; 83935; 84100; 84300; 84443; 85025; 85027; 85610; 87040; 87077; 87086; 87186; 87502; 87811; 93005; 97110; 97116; 97163; 97166; 97530; 97535; 99285

== ENCOUNTER 2024-12-29 16:02 | Emergency (ER) | payer OTHER, SELFPAY ==
[2024-12-29 16:06] VITALS: BP 165/85
[2024-12-29 16:11] VITALS: BMI 29.3
[2024-12-29 16:18] LABS: Hematocrit 38.7 % (37.0-47.0); Hemoglobin 13.6 g/dL (12.0-16.0); Mean Corp Hgb Conc. 35.1 g/dL (33.0-37.0); Mean Corpuscular Volume 87.4 fL (81.0-99.0); Nucleated Red Blood Cells % 0 %; Platelet Count 310 10^3/uL (130-400); Red Cell Dist. Width 12.6 % (11.5-14.5)
--- NOTE | 2024-12-29 16:38 | ED.GENMED ---
History of Present Illness
General
Chief Complaint: Breathing Problem
Source: patient
Exam Limitations: none
Time Seen by Provider: 12/29/24 16:37
Nursing documentation reviewed up to this point in time: agreed with
History of Present Illness
History of Present Illness:
79-year-old female with history HTN, HLD, multiple remote abdominal surgeries presents with shortness of breath, cough, back pain. Patient tested positive for COVID last week and is on Paxlovid. Symptoms started the day she was diagnosed 5 days
ago. She started with a cough and sneezing, diarrhea and she states she has developed back pain from coughing so much. Her appetite is poor. She states she is here today because she feels the cough is worse today. Her diarrhea continues for 5
times a day sometimes small amounts sometimes larger amounts. Nonbloody.
Patient denies chest pain, states her cough is sometimes productive of thick yellow sputum, she denies fever or chills. She she feels nauseous intermittently but has not vomited. She denies nausea at this time.
Past History
Past History
ED Past Medical History: Other (Hyperlipidemia, hypertension, chronic bronchitis, diverticulosis, irritable bowel syndrome, kidney stones, osteoarthritis, colon polyps, ovarian cysts, urinary tract infection, and C. difficile, mitral bowel prolapse )
ED Past Surgical History: Appendectomy and Other (Multiple bowel resections)
Social History
Tobacco: Non-smoker
Alcohol: None
Drug: None
Personal:
Living: with family
Employment: Retired
Family History
Family History: Hypertension
Review of Systems
Review of Systems
Allergies reviewed?: Yes
All Other Systems: ROS reviewed and negative except as documented in HPI and ROS
Phy Exam
Physical Exam
Physical Exam:
GENERAL: No acute distress. A&Ox3.
CONSTITUTIONAL: Afebrile.
EYES: clear, conjunctivae normal
ENMT: moist mucus membranes, Pharynx nl
RESPIRATORY: Regular respirations, nonlabored, lungs clear.
CARDIOVASCULAR: Regular rate and rhythm, no murmurs, no rubs.
GI: Soft, nontender, normal BS
MUSCULOSKELETAL: Moves with ease. Well perfused.
SKIN: Warm, dry, pink
PSYCH: Normal mood and affect. Well kept, interactive and appropriate
NEUROLOGIC: Awake, alert and oriented. No focal neurological deficits
Scores
Heart Failure Risk
Heart Failure Risk Score: Not Applicable
Course
Orders/Labs/Results
Orders:
Orders
12/29/24 16:05
Electrocardiogram (*1) Urgent
Reason for Study: Shortness of Breath
EKG- Treatment ONCE
12/29/24 16:08
CR Chest - 2 Views Urgent
Comment:
Reason For Exam: shortness of breath
12/29/24 16:12
Complete Blood Count/With Diff Urgent
Comprehensive Metabolic Panel Urgent
12/29/24 18:16
Benzonatate [Tessalon Perles] 100 mg PO NOW STA
Abnormal Lab Results
12/29/24
16:12
Absolute Monos (auto) 0.8 H 10^3/uL
(0.1-0.6)
Monocytes % 11.3 H %
(1.7-9.3)
Sodium 129 L mmol/L
(135-145)
Chloride 97 L mmol/L
(98-107)
Glucose 111 H mg/dl
(70-99)
12/29/24 16:12
12/29/24 16:12
Vital Signs
Initial and Last Documented VS:
Initial Vital Signs
Temp Pulse Resp BP Pulse Ox
98.4 F 82 22 165/85 97
12/29/24 16:06 12/29/24 16:06 12/29/24 16:06 12/29/24 16:06 12/29/24 16:06
Last Documented Vital Signs
Temp Pulse Resp BP Pulse Ox
98.4 F 78 20 165/85 96
12/29/24 16:06 12/29/24 18:30 12/29/24 18:15 12/29/24 16:06 12/29/24 18:30
MDM/Problems Addressed
Differential Diagnosis Includes:
COVID, pneumonia
MDM/Problems Addressed:
79-year-old female with history HTN, HLD, multiple remote abdominal surgeries presents with shortness of breath, cough, back pain. Patient tested positive for COVID last week and is on Paxlovid. Symptoms started the day she was diagnosed 5 days
ago. She started with a cough and sneezing, diarrhea and she states she has developed back pain from coughing so much. Her appetite is poor. She states she is here today because she feels the cough is worse today. Her diarrhea continues for 5
times a day sometimes small amounts sometimes larger amounts. Nonbloody.
Patient denies chest pain, states her cough is sometimes productive of thick yellow sputum, she denies fever or chills. She she feels nauseous intermittently but has not vomited. She denies nausea at this time.
No hypoxemia, afebrile, NAD
EKG: NSR
CBC normal
CMP with no clinically significant abnormality, sodium 129 consistent with her chronic hyponatremia
6:00 PM:
Chest x-ray radiology report read: Mild opacity in the left lung base, which could represent atelectasis or viral pneumonia.
No pleural effusion or pneumothorax. Stable cardiomediastinal silhouette. Chronic degenerative changes of the spine. Spinal stimulator leads are in place.
79-year-old female with known COVID on Paxlovid here for worsening cough. Afebrile, NAD, speaking in full sentences, no hypoxemia, chest x-ray consistent with possible viral pneumonia with mild opacity in left lung base.
Patient out of bed and ambulating to bathroom and back. Pulse ox immediately afterwards was 94% room air and her heart rate was 100. After resting for a few minutes her pulse ox is 96% room air and heart rate is 96.
Tessalon Perles given for cough and rx sent to her pharmacy.
She is stable for discharge
There have been no significant coughing spells since arrival.
Patient just had a moderate diarrheal stool she flushed it, nonbloody. Diarrhea most likely from Covid. She has a history of diarrhea and has taken Imodium in the past. She has been taking Imodium for the past 2 days and states it works well. She
has no antibiotic use in the past 2 months. Her abdomen is benign. Up-to-date review of Paxlovid does not list diarrhea is 1 of its side effects. Instructed her to use the Imodium
*Pulse Oximetry
SaO2: 97
Oxygen Mode of Delivery: Room air
Patient hypoxic: no
*EKG
EKG Intrepretation Date: 12/29/24
Interpretation: normal
Heart Rate: 72
Rate: normal
Rhythm: sinus
[place]: normal axis
Interval: normal interval
QRS Pattern: normal QRS
Ischemia: no ischemia
*Critical Care Note
Total Time (30-74mins, 75-104mins- exclusive of procedures): Not Applicable
ED Attending Note
-
Portions of this chart may have been created with voice recognition software.� Occasional wrong word or��sound alike� substitutions may have occurred due to the inherent limitations of voice recognition software.
Discharge Plan
Departure
Patient Disposition: Home (Routine Discharge)
Date of Disposition: 12/29/24
Time of Disposition: 18:11
Patient with high blood pressure during this ER visit?: No
Condition: Fair
Discharge Problem:
COVID-19, Cough, Diarrhea due to COVID-19
Instructions: COVID-19 in adults (DC), Acute Diarrhea
Prescriptions:
New
benzonatate 100 mg capsule
100 mg PO TID PRN (Reason: Cough) Qty: 30 0RF
No Action
amlodipine 5 MG tablet
5 mg PO HS
simvastatin 20 MG tablet
20 mg PO HS
acetaminophen [Tylenol Extra Strength] 500 MG tablet
1,000 mg PO Q6H PRN (Reason: mild pain)
levothyroxine 75 MCG tablet
75 mcg PO DAILY
temazepam [Restoril] 30 MG capsule
30 mg PO HS
Patient Comments:
05/08/2023: last filled 04/08/23, 30 tabs for 30 days from [facility]
L.acidoph,paracasei,B.animalis 1 EACH capsule
1 ea PO DAILY
cyanocobalamin (vitamin B-12) 1,000 MCG tablet
1,500 mcg PO DAILY
calcium carbonate 600 MG tablet
600 mg PO BID
loperamide 2 MG capsule
2 mg PO Q6HPRN PRN (Reason: diarrhea) 0RF
famotidine 40 mg tablet
40 mg PO HS
cephalexin 500 mg capsule
500 mg PO BID Qty: 7 0RF
Referrals:
Kwasi Dunn, DO [Family Provider, Internal Medicine] - As needed
Activity Restrictions/Additional Instructions:
As we discussed, nothing worrisome in your workup here today.
Your diarrhea is most likely from COVID. Continue your Imodium as directed on the package.
I sent a prescription to your pharmacy for benzonatate cough capsules, you were given 1 here tonight, this may help your cough.
Your chest x-ray is consistent with a mild viral pneumonia, no antibiotics are indicated, this is typical of COVID.
Oxygen level has remained normal even with your walking to and from the bathroom.
Interventions
Interventions:
*Risk Screen - Suicide Last Done: 12/29/24 16:09
*General Assessment Last Done: 12/29/24 16:10
*Neglect/Abuse Screening Last Done: 12/29/24 16:09
ED- Cardiac Assessment Last Done: 12/29/24 17:00
ED- Pulmonary Assessment Last Done: 12/29/24 17:00
Discharge Date and Time
Print Language: TELUGU
[2024-12-29 16:40] LABS: ALT (SGPT) 15 U/L (0-35); AST (SGOT) 27 U/L (14-36); Albumin 4.4 g/dl (3.5-5.0); Alkaline Phosphatase 61 U/L (38-126); Blood Urea Nitrogen 12 mg/dl (7-17); Calcium 9.3 mg/dl (8.4-10.2); Carbon Dioxide 24 mmol/L (22-30); Chloride 97 mmol/L (98-107); Estimated Creatinine Clearance 54 ml/min; Glucose 111 mg/dl (70-99); Potassium 4.2 mmol/L (3.5-5.1); Sodium 129 mmol/L (135-145); Total Protein 7.5 g/dl (6.3-8.2); eGFR > 60.00
[2024-12-29] MEDS: TESSALON PERLES 100 MG PO (19:21)
== END 2024-12-29 20:06 | disposition home or self-care (01) ==
LOC: EMR 16:02
PROVIDERS: EMERGENCY PHYSICIAN Emergency Medicine; FAMILY PHYSICIAN Internal Medicine
DX: U07.1 COVID-19 (principal); R19.7 Diarrhea, unspecified; R05.9 Cough, unspecified; E78.49 Other hyperlipidemia; I10 Essential (primary) hypertension; Z90.49 Acquired absence of other specified parts of digestive tract
CPT/HCPCS: 99285; 71046; 80053; 85025; 93005

== ENCOUNTER 2025-01-06 16:06 | Observation (INO) | payer OTHER, SELFPAY ==
[2025-01-06 10:22] VITALS: BP 137/74
[2025-01-06 10:24] VITALS: BMI 30.4
--- NOTE | 2025-01-06 10:39 | ED.GENMED ---
History of Present Illness
General
Chief Complaint: Weakness
Source: patient and records
Exam Limitations: none
Time Seen by Provider: 01/06/25 10:17
History of Present Illness
History of Present Illness:
79-year-old female complaining of ongoing weakness fatigue diarrhea cough. Was diagnosed with COVID 2 weeks ago. Was on Paxlovid. Symptoms have not improved. Difficulties with ADL at home. No chest pain. Some shortness of breath. Lives at
home with her .
Past History
Past History
ED Past Medical History: GERD, HTN, Hypercholesterolemia, Valvular disease and Other (Hyperlipidemia, hypertension, chronic bronchitis, diverticulosis, irritable bowel syndrome, kidney stones, osteoarthritis, colon polyps, ovarian cysts, urinary
tract infection, and C. difficile, mitral bowel prolapse )
ED Past Surgical History: Appendectomy, Cholecystectomy, Gynecological, Orthopedic, Tonsilectomy and Other (Multiple bowel resections)
Social History
Tobacco: Non-smoker
Alcohol: None
Drug: None
Personal:
Living: with family
Employment: Retired
Family History
Family History: Hypertension
Review of Systems
Review of Systems
All Other Systems: Not applicable
Constitutional: Reports fatigue; Denies fever
Respiratory: Reports cough and trouble breathing; Denies hemoptysis
Cardiac: Denies chest pain or syncope
Phy Exam
Physical Exam
Physical Exam:
GENERAL: Alert and oriented in no apparent distress. Elderly and frail. Generally weak
EYE: Orbits normal.
NECK: Supple, no significant adenopathy.
ENT: Pharynx without erythema
CARDIAC: Regular rate and rhythm without any obvious murmurs.
LUNGS: Coarse rhonchi greater in the left base
ABDOMEN: Soft, without focal tenderness or distention
NEUROLOGICAL: Alert and oriented , grossly non-focal
SKIN: Warm and dry, no rash or lesion, no discoloration, skin intact.
MUSCULOSKELETAL: No edema,no deformity.Good color
PSYCH: Normal and appropriate interaction..
Sepsis
Sepsis Screening
Sepsis Assessment: Sepsis Ruled Out
Sepsis Screen
Sepsis Screen: Sepsis Ruled Out
Date: 01/06/25
Time: 13:56
Course
Orders/Labs/Results
Orders:
Orders
01/06/25 10:23
EKG [Electrocardiogram (*1)] Urgent
Reason for Study: Chest Pain
CR Chest - 2 Views Urgent
Comment:
Reason For Exam: weakness and cough
01/06/25 10:24
EKG- Treatment ONCE
01/06/25 10:26
COVID-19 Antigen Urgent
Source: Nasal Swab
Complete Blood Count/With Diff Urgent
Comprehensive Metabolic Panel Urgent
Influenza A+B Rapid Molecular Urgent
BRANDON Source: Nasal Swab
Specimen Description:
01/06/25 10:36
0.9% Sodium Chloride 500 ml [Nss] 500 ml IV BOLUS
01/06/25 10:38
STOOL [C difficile Antigen & Toxins] Urgent
BRANDON Source: Feces/Stool
Specimen Description:
Stool Culture Urgent
BRANDON Source: Feces/Stool
Specimen Description:
Abnormal Lab Results
01/06/25
10:26
MCH 31.4 H pg
(27.0-31.0)
Absolute Neuts (auto) 7.1 H 10^3/uL
(1.4-6.5)
Absolute Monos (auto) 0.7 H 10^3/uL
(0.1-0.6)
Neutrophils % 75.7 H %
(42.2-75.2)
Lymphocytes % 14.3 L %
(20.5-51.1)
Glucose 115 H mg/dl
(70-99)
01/06/25 10:26
01/06/25 10:26
Vital Signs
Initial and Last Documented VS:
Initial Vital Signs
Temp Pulse Resp Pulse Ox
98.1 F 106 20 97
01/06/25 10:15 01/06/25 10:15 01/06/25 10:15 01/06/25 10:15
Last Documented Vital Signs
Temp Pulse Resp BP Pulse Ox
98.1 F 89 20 112/67 96
01/06/25 10:15 01/06/25 11:30 01/06/25 11:30 01/06/25 11:00 01/06/25 12:00
MDM/Problems Addressed
Differential Diagnosis Includes:
Ongoing symptoms of fatigue weakness and cough with some shortness of breath after being diagnosed with COVID 2 weeks ago. Coarse rhonchi in the left base. May be a Paxlovid rebound issue. Workup in progress
*Radiology
Radiology exam reviewed: radiology read reviewed (Negative)
*Pulse Oximetry
SaO2: 97
Oxygen Mode of Delivery: Room air
Patient hypoxic: no
*EKG
Interpreted by ED Provider?: Yes
Interpretation: abnormal
Comparison EKG: changes noted
Heart Rate: 91
Rate: normal
Rhythm: sinus
[place]: left axis deviation
Interval: long QT
QRS Pattern: left vent hypertrophy
Ischemia: non-specific ST changes
*Critical Care Note
Total Time (30-74mins, 75-104mins- exclusive of procedures): Not Applicable
Data Reviewed
Review of Other/Old Records Reveals: Labs, Records, Radiology Studies and Testing
Update Note
Update Note:
Progressive cough weakness. Clinical pneumonia left lower lobe although does not show up on x-ray. Discussed at length with patient and family. Due to her severe weakness they are not comfortable with outpatient management. Will admit for
further care
ED Attending Note
-
Portions of this chart may have been created with voice recognition software.� Occasional wrong word or��sound alike� substitutions may have occurred due to the inherent limitations of voice recognition software.
Discharge Plan
Departure
Patient Disposition: Admit
Date of Disposition: 01/06/25
Time of Disposition: 13:12
Presentation/result/management discussed w/ accepting MD/DO: Hospitalist
Discharge Problem:
Progressive weakness, Possible clinical pneumonia left lower l, Recent COVID infection
Prescriptions:
No Action
amlodipine 5 MG tablet
5 mg PO HS
simvastatin 20 MG tablet
20 mg PO HS
temazepam [Restoril] 30 MG capsule
30 mg PO HS
Patient Comments:
last filled 01/05/25 #30
dextromethorphan-guaifenesin [Robitussin DM Max] 10-200 mg/5 mL Liquid
7.5 ml PO Q6H PRN (Reason: cough)
Referrals:
Kwasi Dunn DO [Family Provider, Internal Medicine]
Interventions
Interventions:
*Risk Screen - Suicide Last Done: 01/06/25 12:00
*General Assessment Last Done: 01/06/25 12:00
*Neglect/Abuse Screening Last Done: 01/06/25 12:00
*ED- Fall Risk Assessment Last Done: 01/06/25 12:00
ED- Cardiac Assessment Last Done: 01/06/25 12:00
ED- Neurological Assessment Last Done: 01/06/25 12:00
ED- Pulmonary Assessment Last Done: 01/06/25 12:00
Discharge Date and Time
Print Language: AZERI
[2025-01-06 10:41] LABS: Hematocrit 39.6 % (37.0-47.0); Hemoglobin 13.7 g/dL (12.0-16.0); Mean Corp Hgb Conc. 34.6 g/dL (33.0-37.0); Mean Corpuscular Volume 90.8 fL (81.0-99.0); Nucleated Red Blood Cells % 0 %; Platelet Count 365 10^3/uL (130-400); Red Cell Dist. Width 12.4 % (11.5-14.5)
[2025-01-06 10:53] LABS: COVID-19 Antigen Negative (Negative)
[2025-01-06 11:00] VITALS: BP 112/67
[2025-01-06 11:04] LABS: ALT (SGPT) 13 U/L (0-35); AST (SGOT) 22 U/L (14-36); Albumin 4.2 g/dl (3.5-5.0); Alkaline Phosphatase 75 U/L (38-126); Blood Urea Nitrogen 13 mg/dl (7-17); Calcium 9.2 mg/dl (8.4-10.2); Carbon Dioxide 25 mmol/L (22-30); Chloride 101 mmol/L (98-107); Estimated Creatinine Clearance 52 ml/min; Glucose 115 mg/dl (70-99); Potassium 4.1 mmol/L (3.5-5.1); Sodium 135 mmol/L (135-145); Total Protein 7.1 g/dl (6.3-8.2); eGFR > 60.00
[2025-01-06] MEDS: NSS 500 IV (11:13)
--- NOTE | 2025-01-06 14:00 | HPS.HSE ---
Addendum entered and electronically signed by EZ Mclaughlin 01/06/25 20:38:
Problem/plan addendum
#Mild pneumonia inferior segment lingula/endobronchial infection right lower lobe
- Will start IV ceftriaxone IV Zithromax
- Follow sputum culture
CT chest:
1. Mild pneumonia or peripheral endobronchial infection in the inferior segment of the lingula.
2. Mild peripheral endobronchial infection in the right lower lobe and probably in the right upper lobe with small sub-6 mm centrilobular pulmonary nodules. Atypical mycobacterial infection as a diagnostic possibility.
3. Varicoid bronchiectasis and scarring in the medial segment of the right middle lobe.
4. Mild emphysema in the right upper lobe.
5. Small pericardial effusion.
6. Severe calcific atherosclerotic plaque in the coronary arteries.
7. Fusiform ascending thoracic aortic aneurysm (4.1 cm diameter).
8. Small hiatal hernia.
9. Chronic superior endplate fracture of L1.
#Incidental right upper lobe 6 mm pulmonary nodules
-Recommend follow-up outpatient CT
Addendum entered and electronically signed by Catarino Mariano MD 01/06/25 15:16:
This is an addendum to the H&P written by Patti Clancy on 01/06/25. �Patient seen and examined dependently with [facility].
79-year-old female past medical history of recent COVID infection, prior history of C. difficile, diverticulosis status post multiple bowel resection, frequent UTIs, hypertension, hyperlipidemia, insomnia, GERD, chronic anemia, IBS, anxiety,
hypertension, mitral valve prolapse, mild aortic regurgitation, aneurysm of ascending aorta, obstructive sleep apnea, osteoarthritis, ovarian cyst, renal calculi, presenting with ongoing weakness, fatigue, watery diarrhea and productive cough. �She
was diagnosed with COVID infection 2 weeks ago and was treated with Paxlovid. �Symptoms have not improved.
Vital signs unremarkable. �Not hypoxemic. �On examination she was noted to have rhonchi left lower base.
Labs unremarkable. �COVID-negative. �Influenza negative. �Chest x-ray shows no radiographic evidence of pneumonia, acute pulmonary edema or pleural effusion. �Chest x-ray from 12/29 showed left basilar infiltrate no longer present. �There is chronic
superior endplate fracture of T12 moderate loss of vertebral body height.
Main concern appears to be acute diarrhea after recent COVID infection treated with Paxlovid concern for C. difficile given history. �Check stool culture, C. difficile, norovirus. �Hold Imodium. �Also with persistent cough although chest x-ray
unremarkable. �Check CT chest to evaluate for bacterial pneumonia. �IV fluids.
Original Note:
Family Physician
-
Family Physician: Kwasi Dunn
Chief Complaint
-
Weakness, fatigue, diarrhea, cough x 14 days
History of Present Illness
79-year-old female complaining of ongoing weakness, fatigue, diarrhea and cough for the past 14 days. She states over the past 3 to 4 days she has had diarrhea 7-9 times a day with decreased appetite. She normally uses a rollator but feels very
weak walking to the bathroom. She lives at home with her . Had recent COVID on 12/23/2024. Reports Imodium not working. She denies fever, chills, chest pain, palpitations, shortness of breath, abdominal pain, nausea, vomiting, rash.
The patient was seen in ER on 12/29/2024 she reported on 12/23/2024 prior testing positive for COVID was on Paxlovid she was seen in the ER for ongoing cough sneezing and diarrhea for 5 days at that time x-ray showed viral pneumonia with mild opacity
left lung base oxygen saturation was 96% she was instructed to continue her Imodium as she has taken in the past for chronic diarrhea. She has past medical history of COVID infection May 2023 treated with Paxlovid, UTIs with E. coli UTI
May 2023/June 2020, HTN, HLD, anemia, anxiety, hypothyroidism,Aneurysm of the ascending aorta 4.4 cm, mild AR ,GERD, C. difficile > 10 years ago related to antibiotics, diverticulosis, IBS multiple bowel resections valvular disease/mitral
valve prolapse, chronic bronchitis, ANDREW, renal calculi, osteoarthritis, ovarian cysts, hypovolemic hyponatremia May 2023,Chronic ambulatory dysfunction uses rollator at baseline
Medical History
Past Medical History
Past Medical History: Reports Other
Additional Past Medical History:
Aneurysm of the ascending aorta 4.4 cm
Mild AR
COVID infection May 2023 treated with Paxlovid,
UTIs with E. coli UTI May 2023/June 2020
Renal calculi
HTN
HLD
anemia-normocytic
Anxiety
Hypothyroidism
Aneurysm of the ascending aorta 4.4 cm
mild AR
GERD
C. difficile > 10 years ago related to antibiotics
Diverticulosis multiple bowel resections
IBS
Chronic bronchitis,
Osteoarthritis
Ovarian cysts
Hypovolemic hyponatremia May 2023
Chronic ambulatory dysfunction uses rollator at baseline
Past Surgical History: Reports Appendectomy, Bowel Resection, Cholecystectomy, Gynocological, Orthopedic and Tonsilectomy
Social History
Tobacco: Former Smoker
Alcohol: Occasional
Personal:
Living: With Family (Lives with )
Employment: Retired
Family History
Family History: Not pertinent
Allergies / Home Medications
Allergies reflects when Allergies were last updated in [facility].
Home Medications with original date entered in [facility]
Allergy/Medication List:
Allergies
Allergy/AdvReac Type Severity Reaction Status Date / Time
duloxetine (From Cymbalta) Allergy Nausea / Verified 12/29/24 16:06
Vomiting
metronidazole (From Flagyl) Allergy Rash, Verified 12/29/24 16:06
VOMITING
Metronidazole HCl (From Allergy Rash, Verified 12/29/24 16:06
Flagyl) vomiting
pantoprazole Allergy Hives Verified 12/29/24 16:06
Sulfa (Sulfonamide Allergy Hives, Verified 12/29/24 16:06
Antibiotics) vomiting
Home Medications
amlodipine 5 mg tablet 5 mg PO HS Blood pressure 06/23/12
simvastatin 20 mg tablet 20 mg PO HS High cholesterol 06/23/12
temazepam 30 mg capsule (Restoril) 30 mg PO HS Sleep 05/20/17
dextromethorphan-guaifenesin 10 mg-200 mg/5 mL oral liquid 7.5 ml PO Q6H PRN cough 01/06/25
Review of Systems
-
History Source: Patient
A 12 point ROS was completed and negative except as noted: Yes
Constitutional: Reports Fatigue; Denies Fever or Chills
EENT: Denies Sore Throat or Runny Nose
Respiratory: Reports Cough (Productive cough); Denies Trouble Breathing
Cardiac: Denies Chest Pain, Diaphoresis, Palpitations or Syncope
Abdomen/GI: Reports Diarrhea (Watery diarrhea 7-9 times a day); Denies Abdominal Pain, Nausea, Vomiting or Constipated
: Denies Dysuria, Frequency, Flank Pain, Incontinence or Difficulty Voiding
Musculoskeletal: Denies Joint Pain or Edema
Skin: Denies Itching or Rash
Neurological: Reports Weakness (Generalized); Denies Dizzy or Headache
Endocrine: Reports No Symptoms
Hematologic/Lymphatic: Reports No Symptoms
Psych: Reports Calm
Physical Exam
Vital Signs
Vital Signs
Temp Pulse Resp BP Pulse Ox
98.1 F 89 20 112/67 96
01/06/25 10:15 01/06/25 11:30 01/06/25 11:30 01/06/25 11:00 01/06/25 12:00
Physical Exam
General: Conversant; No Fever, Chills or Sweats
HEENT: NormoCephalic, Anicteric, Moist mucous membranes, PERRLA, [place] Conjunctivae and No Ptosis
Respiratory: Rhonchi (Left lower lung base); No Wheezes or Rales
Cardiac: S1/S2 and Regular Rhythm; No Murmur, Rub, Gallop or Peripheral Edema
Breast: Deferred by me
GI: Soft, Non Tender, Non Distended, Normal Bowel Sounds and No Hepatosplenomegaly
Rectal: Deferred by Provider
Genito-urinary: Deferred by me
Musculoskeletal: No Clubbing, No Cyanosis and No Edema
Skin: Warm and Dry; No Rash or Jaundice
Neuro: AO x 3, No Motor Deficits, Nonfocal/grossly intact, Cranial Nerves Intact and No Sensory Deficits; No Slurred Speech, Facial Droop, Tremors or Sedated
Psych: Calm
Laboratory Results
-
01/06/25 10:26
01/06/25 10:26
Laboratory Results
Total Bilirubin 0.7 mg/dl (0.2-1.3) 01/06/25 10:26
AST 22 U/L (14-36) 01/06/25 10:26
ALT 13 U/L (0-35) 01/06/25 10:26
Alkaline Phosphatase 75 U/L (38-126) 01/06/25 10:26
Impression/Plan
-
[facility]
#Possible left lower lung pneumonia with recent COVID 12/23/2024
#Patient treated her COVID with Paxlovid on 12/23/2024 had ongoing diarrhea cough treated with Imodium
#History of COVID infection also May 2023 treated with Paxlovid
#Chronic bronchitis-no acute exacerbation
- 92%�96 RA in ER
- Repeat COVID was negative, influenza negative
- Continue Robitussin DM
- Check CT chest rule out pneumonia
- Hold on current antibiotics until CT chest results given history of C. difficile in past
- Incentive spirometry
-PT/OT consult
Follow CBC
#Generalized weakness fatigue secondary to ongoing diarrhea/recent COVID
#Chronic ambulatory dysfunction uses rollator at baseline
- Supportive care
- IV fluids NSS 80 cc an hour
- PT OT consult
#Chronic ongoing diarrhea
#History of C. difficile in past > 10 years related to antibiotics
#History of diverticulosis status post multiple bowel resections
-IV NSS 500 cc bolus
- Check stool cultures, C. difficile
- HOLD Imodium until cultures and C. difficile come back
#UTIs with E. coli UTI May 2023/June 2020
- Check urinalysis with reflex culture
#HTN
Continue amlodipine 5 mg at bedtime with hold parameters
BP 112/67
#HLD
- Continue simvastatin 20 mg at bedtime
#Insomnia
-Continue Restoril 30 mg at bedtime
#GERD
- No reported meds
#Anemia�normocytic
Hgb 13.7
#Anxiety
- No current meds
#Hypothyroidism
Patient reports was taken off meds years ago unsure why
We will check TSH with free T4 reflex
#mitral valve prolapse
#History of mild AR
2D echo 06/13/2020: EF 60-65%, mild LVH, preserved systolic function, aortic sclerosis with mild AR,aneurysm of the ascending aorta 4.4 cm
#Aneurysm of the ascending aorta 4.4 cm
Other PMH:
renal calculi
osteoarthritis
ovarian cysts
Hypovolemic hyponatremia May 2023-NA 135
DVT prophylaxis
Subcu Lovenox
Full code
[2025-01-06 14:45] LABS: Magnesium 2.1 mg/dl (1.6-2.3)
[2025-01-06 15:00] VITALS: BP 143/89
--- NOTE | 2025-01-06 16:38 | EDCM ---
CM reviewed chart and met with pt bedside in ED. Lives in apartment at [place] with her , recently moved there from [facility]. Has elevator access.
Independent in personal care, needed assistance with ADLs over past few weeks after dx with Covid, ambulates with rollator, also uses wheelchair. Has shower chair and grab rails in shower and around toilet.
COLMENARES reviewed and signed, copy left for patient.
Confirms prescription coverage.
[facility]x [facility] Home [facility] and STR at [facility], [facility] and [facility].
PCP: Kwasi Dunn
Pharmacy: [facility]
CM will continue to follow for any discharge planning needs.
[2025-01-06 19:59] VITALS: BP 116/81
[2025-01-06 20:15] VITALS: BMI 28.2
[2025-01-06 20:24] LABS: Urine Character Cloudy (Clear)
[2025-01-06 20:25] VITALS: BP 129/72
[2025-01-06 21:06] LABS: Urine Squamous Cell 0-2 /LPF (Few)
[2025-01-06 21:07] LABS: Urine Red Blood Cell 0-2 /HPF (0-2); Urine White Cell >100 /HPF (0-5)
[2025-01-06] MEDS: LOVENOX 40 MG SC (21:10)
[2025-01-06] MEDS: NSS 1000 IV (21:10)
[2025-01-06] MEDS: STERILE WATER FOR INJECTION 10 ML IV (21:11)
[2025-01-06] MEDS: NORVASC 5 MG PO (21:11)
[2025-01-06] MEDS: ROCEPHIN 1000 MG IV (21:11)
[2025-01-06] MEDS: LIPITOR 10 MG PO (21:12)
[2025-01-06] MEDS: ZITHROMAX INFUSION 250 IV (21:12)
--- NOTE | 2025-01-06 21:35 | PTCARENOTE ---
Pt arrived to unit from ED on stretcher at 2004. Pt ambulated to bed with assist of one and the rolling walker-gait steady but pt endorses overall weakness. Pt AAOx3 & with recent hx of falls; notified to use call hernandez prior to ambulating-pt is
agreeable to this. VSS. IVF started-See JUN. IV abx given-See JUN. Pt reports having loose bowel movements during day-has not had not a BM since being in the hospital-collection device in place & pt educated about needing a stool sample. Call hernandez
within reach, bed in lowest position and locked, pt states no further needs at this time.
[2025-01-06 23:00] VITALS: BP 122/71
[2025-01-06] MEDS: RESTORIL 30 MG PO (23:29)
[2025-01-07] VITALS (7 sets, daily range): BP systolic 110–139; BP diastolic 71–79; BMI 28.2
[2025-01-07 07:12] LABS: Hematocrit 34.9 % (37.0-47.0); Hemoglobin 11.7 g/dL (12.0-16.0); Mean Corp Hgb Conc. 33.5 g/dL (33.0-37.0); Mean Corpuscular Volume 90.6 fL (81.0-99.0); Nucleated Red Blood Cells % 0 %; Platelet Count 331 10^3/uL (130-400); Red Cell Dist. Width 12.7 % (11.5-14.5)
[2025-01-07 07:39] LABS: ALT (SGPT) 11 U/L (0-35); AST (SGOT) 18 U/L (14-36); Albumin 3.5 g/dl (3.5-5.0); Alkaline Phosphatase 57 U/L (38-126); Blood Urea Nitrogen 14 mg/dl (7-17); Calcium 8.6 mg/dl (8.4-10.2); Carbon Dioxide 27 mmol/L (22-30); Chloride 103 mmol/L (98-107); Estimated Creatinine Clearance 51 ml/min; Glucose 91 mg/dl (70-99); Potassium 4.4 mmol/L (3.5-5.1); Sodium 135 mmol/L (135-145); Total Protein 6.1 g/dl (6.3-8.2); eGFR > 60.00
--- NOTE | 2025-01-07 07:53 | W.PN.HOSP.TC ---
Today's Communication/Plan
-
dc IVF, tolerating diet, monitor off
send stool studies if appropriate sample obtained
dc abx and monitor off
Assessment / Plan
Assessment / Plan
Physical Exam
General: no acute distress, appears comfortable at this time.
HEENT: NormoCephalic, Anicteric, Moist mucous membranes, PERRLA
Respiratory: Clear to auscultation b/l
Cardiac: S1/S2 and Regular Rhythm; No Murmur, Rub, or Gallop
GI: Soft, Non Tender, Non Distended, Normal Bowel Sounds and No Hepatosplenomegaly
Musculoskeletal: No Clubbing, No Cyanosis and No Edema
Skin: Warm and Dry; No Rash or Jaundice
Neuro: AO x 3 conversant coherent
Psych: Calm
CT chest 01/06/25 appreciated
1. Mild pneumonia or peripheral endobronchial infection in the inferior segment of the lingula.
2. Mild peripheral endobronchial infection in the right lower lobe and probably in the right upper lobe with small sub-6 mm centrilobular pulmonary nodules. Atypical mycobacterial infection as a diagnostic possibility.
3. Varicoid bronchiectasis and scarring in the medial segment of the right middle lobe.
4. Mild emphysema in the right upper lobe.
5. Small pericardial effusion.
6. Severe calcific atherosclerotic plaque in the coronary arteries.
7. Fusiform ascending thoracic aortic aneurysm (4.1 cm diameter).
8. Small hiatal hernia.
9. Chronic superior endplate fracture of L1.
79[facility] HTN HLD IBS Bowel resections mitral valve prolapse Ambulatory Dysfunction (rolling walker baseline) Hx recent COVID Dec 2024 treated w/ Paxlovid here for evaluation persistent cough diarrhea w/ associate weakness.
#Recent COVID treated with Paxlovid on 12/23/2024 had ongoing diarrhea cough
#Chronic bronchitis-no acute exacerbation
- stable respiratory status room air
- COVID/Flu Neg
- Continue Robitussin DM prn
- CT suggests possible mild pneumonia suspect residual finding from prior infection, noted small RUL centrilobular pulm nodules, possible atypical mycobacterial infection
- consistently afebrile, no white count elevation, neg procal, suspect coughing residual symptoms from prior COVID infxn, empiric ceftriaxone and azithromycin discontinued monitor off
- Pulm eval for tomorrow Wednesday requested
#Generalized weakness fatigue secondary to ongoing diarrhea/recent COVID
#Chronic ambulatory dysfunction uses rollator at baseline
- Supportive care
- Tolerating diet, IVF completed
- PT OT consult appreciated home services
#Chronic ongoing diarrhea
#History of C. difficile in past > 10 years related to antibiotics
#History of diverticulosis status post multiple bowel resections
- Check stool cultures, C. difficile
- Notably no diarrhea noted since admission, small formed stools as per nurse/staff, patient however perceives ongoing diarrhea though also acknowledges improvement from prior admission.
#Possible UTI
urinalysis suggestive but pt asymptomatic
follow urine cx
monitor off abx as above
#HTN
Continue amlodipine 5 mg at bedtime with hold parameters
#HLD
- Continue simvastatin 20 mg at bedtime
#Insomnia
-Continue home Restoril 30 mg at bedtime as needed
#Reported hx Hypothyroidism
Patient reports was taken off meds years ago unsure why
TSH mildly elevated but T4 wnl
Follow up with primary care provider for repeat Thyroid function test in 1 mo.
#mitral valve prolapse
#History of mild AR
2D echo 06/13/2020: EF 60-65%, mild LVH, preserved systolic function, aortic sclerosis with mild AR,aneurysm of the ascending aorta 4.4 cm
#Aneurysm of the ascending aorta (4.4 cm in previous ECHO as above, 4.[address] as above)
Follow up with primary care provider for further surveillance work up as necessary.
Other PMH:
renal calculi
osteoarthritis
ovarian cysts
DVT prophylaxis
Subcu Lovenox
Full code
I spent a total of 50 minutes with the patient or on the floor. More than 50% of this time involved counseling and coordination of care.
Anticipated Discharge: Within 24 hours
Subjective/Interval History
-
Date of Service: January 07, 2025
No acute distress, sitting up comfortably in bed, overall reports feeling improvement in symptoms including cough and diarrhea. reports diarrhea persists but formed stools noted by nurse, insufficient for cdiff studies.
Objective Data
-
Labs:
Laboratory Results
01/07/25
06:38
WBC 5.9
Hgb 11.7 L
Hct 34.9 L
Plt Count 331
Sodium 135
Potassium 4.4
Chloride 103
Carbon Dioxide 27
BUN 14
Creatinine 0.8
Glucose 91
Calcium 8.6
Total Bilirubin 0.7
AST 18
ALT 11
Alkaline Phosphatase 57
Vital Signs:
Vital Signs
Temp Pulse Resp BP Pulse Ox
98.7 F 92 18 133/74 96
01/07/25 03:00 01/07/25 03:00 01/07/25 03:00 01/07/25 03:00 01/07/25 03:00
I&O
01/06/25 01/07/25 01/08/25
06:59 06:59 06:59
Intake Total 730 / 730 672 / 672
Balance 730 / 730 672 / 672
[2025-01-07] MEDS: NSS 1000 IV (10:58)
[2025-01-07] MEDS: ROBITUSSIN DM 7.5 ML PO (11:01)
[2025-01-07 12:43] LABS: Procalcitonin < 0.05 ng/ml (0.0-0.25)
[2025-01-07] MEDS: LOVENOX 40 MG SC (18:14)
--- NOTE | 2025-01-07 18:42 | PTCARENOTE ---
Dr. Eldridge please call SHERMAN Parmar [phone] results TY
[2025-01-07] MEDS: LIPITOR 10 MG PO (22:01)
[2025-01-07] MEDS: NORVASC 5 MG PO (22:01)
[2025-01-07] MEDS: RESTORIL 30 MG PO (23:29)
[2025-01-08] VITALS (7 sets, daily range): BP systolic 107–147; BP diastolic 73–92; PULSE 100; O2SAT 97; BMI 29.3
[2025-01-08] MEDS: ROBITUSSIN DM 7.5 ML PO (08:11)
--- NOTE | 2025-01-08 08:17 | W.PN.HOSP.TC ---
Today's Communication/Plan
-
See plan
Assessment / Plan
Assessment / Plan
Physical Exam
General: no acute distress, appears comfortable at this time.
HEENT: Normocephalic, Moist mucous membranes
Respiratory: Clear to auscultation bilaterally
Cardiac: S1/S2 and Regular Rhythm
GI: Soft, Non Tender, Non Distended, Normal Bowel Sounds
Musculoskeletal:No Cyanosis and No Edema
Skin: Warm and Dry
Neuro: AAO x 3 conversant coherent
Psych: Calm
CT chest 01/06/25 appreciated
1. Mild pneumonia or peripheral endobronchial infection in the inferior segment of the lingula.
2. Mild peripheral endobronchial infection in the right lower lobe and probably in the right upper lobe with small sub-6 mm centrilobular pulmonary nodules. Atypical mycobacterial infection as a diagnostic possibility.
3. Varicoid bronchiectasis and scarring in the medial segment of the right middle lobe.
4. Mild emphysema in the right upper lobe.
5. Small pericardial effusion.
6. Severe calcific atherosclerotic plaque in the coronary arteries.
7. Fusiform ascending thoracic aortic aneurysm (4.1 cm diameter).
8. Small hiatal hernia.
9. Chronic superior endplate fracture of L1.
79 y/o female from [facility] HTN HLD IBS Bowel resections mitral valve prolapse Ambulatory Dysfunction (rolling walker baseline) Hx recent COVID Dec 2024 treated w/ Paxlovid here for evaluation persistent cough diarrhea w/ associate
weakness.
#Recent COVID treated with Paxlovid on 12/23/2024 had ongoing diarrhea cough
#Suspected Post-COVID Fatigue and SOB
#Chronic bronchitis-no acute exacerbation
#Former smoker, quit >40 years ago
- stable respiratory status room air
- COVID/Flu Neg
- Continue Robitussin DM prn
- CT suggests possible mild pneumonia suspect residual finding from prior infection, noted small RUL centrilobular pulm nodules (micronodules), possible atypical mycobacterial infection, bronchiectasis -- per pulmonary these findings would not cause
her to be SOB like this
- consistently afebrile, no white count elevation, neg procal, suspect coughing residual symptoms from prior COVID infxn, empiric ceftriaxone and azithromycin discontinued monitor off
- Pulm eval requested -- per pulmonary, she does not have a history of lung disease
#Generalized weakness fatigue secondary to ongoing diarrhea/recent COVID
#Chronic ambulatory dysfunction uses rollator at baseline
- Supportive care
- Tolerating diet, IVF completed
- PT OT consult appreciated home services
#Chronic ongoing diarrhea
#History of C. difficile in past > 10 years related to antibiotics
#History of diverticulosis status post multiple bowel resections
- Held off on stool studies as per nurse, diarrhea has resolved
- Notably no diarrhea noted since admission, small formed stools as per nurse/staff, patient however perceives ongoing diarrhea though also acknowledges improvement from prior admission.
#UTI?
urinalysis suggestive but pt asymptomatic
follow urine cx
monitor off abx as above
#HTN
Continue amlodipine 5 mg at bedtime with hold parameters
#HLD
- Continue simvastatin 20 mg at bedtime
#Insomnia
-Continue home Restoril 30 mg at bedtime as needed
#Reported history of Hypothyroidism
Patient reported she was taken off meds years ago unsure why
TSH mildly elevated but T4 wnl
Follow up with primary care provider for repeat Thyroid function test in 1 mo.
#mitral valve prolapse
#History of mild AR
2D echo 06/13/2020: EF 60-65%, mild LVH, preserved systolic function, aortic sclerosis with mild AR,aneurysm of the ascending aorta 4.4 cm
#Aneurysm of the ascending aorta (4.4 cm in previous ECHO as above, 4.[address] as above)
Follow up with primary care provider for further surveillance work up as necessary.
Other PMH:
renal calculi
osteoarthritis
ovarian cysts
DVT prophylaxis
Subcu Lovenox
Full code
Anticipated Discharge: 24 - 48 hours
Subjective/Interval History
-
Date of Service: January 08, 2025
Patient was seen and examined. She reported that her diarrhea is a little better.
Objective Data
-
Labs:
Laboratory Results
01/08/25
07:55
WBC Pending
Hgb Pending
Hct Pending
Plt Count Pending
Sodium Pending
Potassium Pending
Chloride Pending
Carbon Dioxide Pending
BUN Pending
Creatinine Pending
Glucose Pending
Calcium Pending
Total Bilirubin Pending
AST Pending
ALT Pending
Alkaline Phosphatase Pending
Vital Signs:
Vital Signs
Temp Pulse Resp BP Pulse Ox
97.6 F 93 18 127/75 97
01/08/25 07:15 01/08/25 07:15 01/08/25 07:15 01/08/25 07:15 01/08/25 07:15
I&O
01/07/25 01/08/25 01/09/25
06:59 06:59 06:59
Intake Total 730 / 730 1852 / 1852
Output Total 550 / 550
Balance 730 / 730 1302 / 1302
[2025-01-08 08:30] LABS: Hematocrit 34.5 % (37.0-47.0); Hemoglobin 12.0 g/dL (12.0-16.0); Mean Corp Hgb Conc. 34.8 g/dL (33.0-37.0); Mean Corpuscular Volume 89.4 fL (81.0-99.0); Nucleated Red Blood Cells % 0 %; Platelet Count 334 10^3/uL (130-400); Red Cell Dist. Width 12.5 % (11.5-14.5)
[2025-01-08 08:42] LABS: ALT (SGPT) 11 U/L (0-35); AST (SGOT) 19 U/L (14-36); Albumin 3.9 g/dl (3.5-5.0); Alkaline Phosphatase 63 U/L (38-126); Blood Urea Nitrogen 11 mg/dl (7-17); Calcium 9.1 mg/dl (8.4-10.2); Carbon Dioxide 24 mmol/L (22-30); Chloride 105 mmol/L (98-107); Estimated Creatinine Clearance 51 ml/min; Glucose 109 mg/dl (70-99); Potassium 3.9 mmol/L (3.5-5.1); Sodium 134 mmol/L (135-145); Total Protein 6.5 g/dl (6.3-8.2); eGFR > 60.00
--- NOTE | 2025-01-08 09:22 | CON.PUL ---
Consultation
Consultation Request
Date/Time Consultation Requested: 01/08/25
Date/Time Consultation Performed: 01/08/25
Performing Provider: Lida
Reason for Consultation: PNA, SOB
Medical History
-
History of Present Illness:
79-year-old female past medical history of recent COVID infection, prior history of C. difficile, diverticulosis status post multiple bowel resection, frequent UTIs, hypertension, hyperlipidemia, ANDREW presenting to with ongoing weakness, fatigue,
watery diarrhea and productive cough. �She was diagnosed with COVID infection 2 weeks ago and was treated with Paxlovid. �Symptoms have not improved. Vital signs unremarkable. �Not hypoxemic. �On examination she was noted to have rhonchi left lower
base.�Chest x-ray shows no radiographic evidence of pneumonia, acute pulmonary edema or pleural effusion. �CT chest with mild PNA, started on IV abx. PCT negative. She is stable on RA.
Past Medical History
Past Medical History: Other (see list below)
Social History
Tobacco: Former Smoker (10 pack years, quit >40 years ago)
Alcohol: None
Drug: None
Family History
Family History: Reviewed & Not Pertinent
Allergies / Home Medications
Allergies
Allergy/AdvReac Type Severity Reaction Status Date / Time
duloxetine (From Cymbalta) Allergy Nausea / Verified 12/29/24 16:06
Vomiting
metronidazole (From Flagyl) Allergy Rash, Verified 12/29/24 16:06
VOMITING
Metronidazole HCl (From Allergy Rash, Verified 12/29/24 16:06
Flagyl) vomiting
pantoprazole Allergy Hives Verified 12/29/24 16:06
Sulfa (Sulfonamide Allergy Hives, Verified 12/29/24 16:06
Antibiotics) vomiting
Home Medications
�Medication �Instructions �Recorded �Confirmed �Last Taken �Type
amlodipine 5 mg tablet 5 mg PO HS Blood pressure 06/23/12 01/06/25 01/05/25 History
simvastatin 20 mg tablet 20 mg PO HS High cholesterol 06/23/12 01/06/25 01/05/25 History
temazepam 30 mg capsule (Restoril) 30 mg PO HS Sleep 05/20/17 01/06/25 01/05/25 History
dextromethorphan-guaifenesin 10 7.5 ml PO Q6H PRN cough 01/06/25 01/06/25 01/05/25 History
mg-200 mg/5 mL oral liquid
Review of Systems
-
History Source: Patient
All other systems: Negative unless noted
Vitals / Labs / Diagnostic Testing
Vital Signs
Temp Pulse Resp BP Pulse Ox
97.6 F 93 18 127/75 97
01/08/25 07:15 01/08/25 07:15 01/08/25 07:15 01/08/25 07:15 01/08/25 07:15
Lab Data
01/08/25 07:55
01/08/25 07:55
Microbiology
01/07/25 00:17 Nose MRSA Screen - Final
No Methicillin Resistant Staphylococcus aureus isolated.
01/06/25 20:07 Sputum Respiratory Culture - Final
01/06/25 20:07 Sputum Gram Stain - Final
01/06/25 10:26 Nasal Swab Influenza Types A & B (JAYE) - Final
Negative for Influenza A & B, NAAT
Negative results must be combined with clinical observations
and patient history.
Nucleic Acid Amplification test (NAAT)performed on the
[employer] platform.
Diagnostic Testing:
Physical Exam
-
HEENT: Normocephalic, Anicteric and Moist Mucous Membranes
Cardiovascular: S1/S2 and Regular Rhythm
Respiratory: Clear and Non-Labored Respirations
GI: Soft, Non Distended and Non Tender
Neurology: Awake, Alert, Oriented and No Motor Deficits
Skin: Warm, Dry and Good Color
General: Comfortable and Other (NAD)
Assessment
-
79-year-old female past medical history of recent COVID infection, prior history of C. difficile, diverticulosis status post multiple bowel resection, frequent UTIs, hypertension, hyperlipidemia, ANDREW presenting to with ongoing weakness, fatigue,
watery diarrhea and productive cough. �She was diagnosed with COVID infection 2 weeks ago and was treated with Paxlovid. �Symptoms have not improved. Vital signs unremarkable. �Not hypoxemic. �On examination she was noted to have rhonchi left lower
base.�Chest x-ray shows no radiographic evidence of pneumonia, acute pulmonary edema or pleural effusion. �CT chest with mild PNA, started on IV abx. PCT negative. She is stable on RA.
Mild pneumonia inferior segment lingula/endobronchial infection right lower lobe
Recent COVID illness
Diarrhea
Weakness, progressive
Bronchiectasis on CT
Incidental right upper lobe 6 mm pulmonary nodules
Conditions present NEWS AGENT
surgical excision of barium blockage in intestines
oophorectomy-right ovary (1972)
partial oophorectomy of left ovary with removal of endometriosis
Mixed hyperlipidemia
Hypertension
GERD
Osteoporosis
Gastroenteritis/IBS/Diverticulosis
Aortic insufficiency
Back Surgery
Appendectomy(1946)
CHOLECYSTECTOMY
Tonsillectomy
L4-L5 laminectomy(2015)
HYSTERECTOMY
Right knee surgery 12/2015
Lower back surgery 10/2021
Plan
No oxygen was needed on admission, currently saturating >90% on RA
Prior history of lung disease is NOT noted --she was never previously diagnosed with any lung disease
Was a former smoker for about 10 years, quit >40 years ago
Has not had symptoms before COVID, she feels it is already improving
Suspect patient has post COVID fatigue/SOB
She had COVID before and tolerated illness well, it did not cause long-lasting illness
CXR obtained indicating no acute disease
FU CT showing mild areas of TIB, micronodules, bronchiectasis--would not likely be contributing to SOB
Can arrange OP FU with PFTs for further clarity if she is already improving
We can try albuterol PRN
PCT negative, not likely PNA
Viral bronchitis cannot be ruled out
Diarrhea noted, can add PRN imodium
Prior ECHO results are reviewed indicating normal function
Not likely CHF
Smoking history noted--10 PYs
At risk for OLD
OP FU recommended
Weight loss measures recommended
Obesity likely contributing to respiratory symptoms
Will need outpatient pulmonary evaluation in our office for PFTs and 6MWT
Reviewed with patient
Risk factors assessed for underlying sleep disordered breathing also noted, recommend outpatient PSG/sleep evaluation
She is in agreement to discharge in next 24 hours if feeling well and improving
We will arrange follow-up, info left in chart
Diagnostic Data
Chest X-Ray:
CT Scan: CT chest:
1. Mild pneumonia or peripheral endobronchial infection in the inferior segment of the lingula.
2. Mild peripheral endobronchial infection in the right lower lobe and probably in the right upper lobe with small sub-6 mm centrilobular pulmonary nodules. Atypical mycobacterial infection as a diagnostic possibility.
3. Varicoid bronchiectasis and scarring in the medial segment of the right middle lobe.
4. Mild emphysema in the right upper lobe.
5. Small pericardial effusion.
6. Severe calcific atherosclerotic plaque in the coronary arteries.
7. Fusiform ascending thoracic aortic aneurysm (4.1 cm diameter).
8. Small hiatal hernia.
9. Chronic superior endplate fracture of L1.
Echo: 06/13/20- 1. Mild concentric left ventricular hypertrophy with preserved systolic function, ejection fraction 60-65%
2. Mitral annular calcification, trace mitral regurgitation, thickened leaflets and normal left atrium
3. Aortic sclerosis with mild aortic regurgitation
4. Normal right heart with normal pulmonary artery pressure
5. Aneurysm of the ascending aorta, 4.4 cm
PFT's:
Reports and relevant images were personally reviewed.
Total time spent on this consultation __55__ minutes which includes review of history, physical exam, medications, laboratory data, personal review of imaging, extensive review of outpatient records, discussion with care team and respiratory therapy.
--- NOTE | 2025-01-08 14:20 | PTCARENOTE ---
pt walking to bathroom with rolling walker. stress inc and has mesh panty on with a marleen pad.
--- NOTE | 2025-01-08 15:46 | CM ---
CM following re: discharge planning.
Reviewed pt's chart, met with pt.
PT and OT evaluations noted - home PT/POT recommended. CM discussed it with the pt, she expressed her agreement. [facility]N choice given. Pt preferred [facility]. A referral to [facility] made.
Pt lives with at [facility] apartment and pt uses a walker as needed.
D/C plan: return back to her living arrangements at [facility] with [facility] and family support.
CM will follow with discharge plan updates as hospitalization progresses
--- NOTE | 2025-01-08 15:49 | VNURNOTE ---
Home Health Liaison spoke with patient to discuss [facility] nurse/therapy, visits, schedule and homebound status. Patient is agreeable and understands that visits at home will be 2-3 x per week to assess and teach medical management.
Patient is aware that [facility] will contact them for start of care in 1-2 days after discharge from .
PM [facility] referral completed in [facility] Port.
[2025-01-08] MEDS: LOVENOX SC (18:08)
[2025-01-08] MEDS: RESTORIL 30 MG PO (22:07)
[2025-01-08] MEDS: LIPITOR 10 MG PO (22:08)
[2025-01-08] MEDS: NORVASC 5 MG PO (22:08)
[2025-01-08] MEDS: IMODIUM LIQUID 2 MG PO (22:11)
[2025-01-08 23:20] LABS: Glucose - Point of Care 121 mg/dl (70-99)
--- NOTE | 2025-01-08 23:22 | W.PN.UPDATE ---
Update Note
Progress Note Update
RN reports patient had a fall. Patient states she was in the bathroom and on her way back to bed, she lost balance and fell on to her knees then to her side, states she did not hit the floor hard, and she has had multiple fall in the past at home.
c/o dull pain in right knee as she fell on her knee first then to the side. She denies hitting head or loosing conscious, denies chest pain or shortness of breath. Right knee with small redness, with little swelling. able to stretch and bend knees
without any difficulties. +Pulses.
will order Right knee Xray . Stable VS
[2025-01-09 03:05] VITALS: BP 122/81
[2025-01-09 05:08] VITALS: BMI 29.3
[2025-01-09 06:39] LABS: Hematocrit 36.0 % (37.0-47.0); Hemoglobin 12.4 g/dL (12.0-16.0); Mean Corp Hgb Conc. 34.4 g/dL (33.0-37.0); Mean Corpuscular Volume 90.9 fL (81.0-99.0); Nucleated Red Blood Cells % 0 %; Platelet Count 347 10^3/uL (130-400); Red Cell Dist. Width 12.6 % (11.5-14.5)
[2025-01-09 06:50] LABS: ALT (SGPT) 11 U/L (0-35); AST (SGOT) 19 U/L (14-36); Albumin 3.8 g/dl (3.5-5.0); Alkaline Phosphatase 57 U/L (38-126); Blood Urea Nitrogen 13 mg/dl (7-17); Calcium 9.2 mg/dl (8.4-10.2); Carbon Dioxide 25 mmol/L (22-30); Chloride 103 mmol/L (98-107); Estimated Creatinine Clearance 51 ml/min; Glucose 105 mg/dl (70-99); Potassium 4.0 mmol/L (3.5-5.1); Sodium 134 mmol/L (135-145); Total Protein 6.6 g/dl (6.3-8.2); eGFR > 60.00
[2025-01-09 07:00] VITALS: BP 127/77
--- NOTE | 2025-01-09 07:41 | W.PN.HOSP.TC ---
Today's Communication/Plan
-
Discharge today
Assessment / Plan
Assessment / Plan
Physical Exam
General: no acute distress, appears comfortable at this time.
HEENT: Normocephalic, Moist mucous membranes
Respiratory: Clear to auscultation bilaterally
Cardiac: S1/S2 and Regular Rhythm
GI: Soft, Non Tender, Non Distended, Normal Bowel Sounds
Musculoskeletal:No Cyanosis and No Edema
Skin: Warm and Dry
Neuro: AAO x 3 conversant coherent
Psych: Calm
CT chest 01/06/25 appreciated
1. Mild pneumonia or peripheral endobronchial infection in the inferior segment of the lingula.
2. Mild peripheral endobronchial infection in the right lower lobe and probably in the right upper lobe with small sub-6 mm centrilobular pulmonary nodules. Atypical mycobacterial infection as a diagnostic possibility.
3. Varicoid bronchiectasis and scarring in the medial segment of the right middle lobe.
4. Mild emphysema in the right upper lobe.
5. Small pericardial effusion.
6. Severe calcific atherosclerotic plaque in the coronary arteries.
7. Fusiform ascending thoracic aortic aneurysm (4.1 cm diameter).
8. Small hiatal hernia.
9. Chronic superior endplate fracture of L1.
Assessment/Plan
79 y/o female from [facility] HTN HLD IBS Bowel resections mitral valve prolapse Ambulatory Dysfunction (rolling walker baseline) Hx recent COVID Dec 2024 treated w/ Paxlovid here for evaluation persistent cough diarrhea w/ associate
weakness.
#Recent COVID treated with Paxlovid on 12/23/2024 had ongoing diarrhea cough
#Suspected Post-COVID Fatigue and SOB
#Chronic bronchitis-no acute exacerbation
#Former smoker, quit >40 years ago
- stable respiratory status room air
- COVID/Flu Neg
- Continue Robitussin DM prn
- CT suggests possible mild pneumonia suspect residual finding from prior infection, noted small RUL centrilobular pulm nodules (micronodules), possible atypical mycobacterial infection, bronchiectasis -- per pulmonary these findings would not cause
her to be SOB like this
- consistently afebrile, no white count elevation, neg procal, suspect coughing residual symptoms from prior COVID infxn, empiric ceftriaxone and azithromycin discontinued monitor off
- Pulm eval requested -- per pulmonary, she does not have a history of lung disease
#Generalized weakness fatigue secondary to ongoing diarrhea/recent COVID
#Chronic ambulatory dysfunction uses rollator at baseline
#History of Falls
#Mechanical Fall on 01/08/25 (no head or neck trauma)
- Supportive care
- Tolerating diet, IVF completed
- PT OT consult appreciated home services
#Chronic ongoing diarrhea - IMPROVED/RESOLVED
#History of C. difficile in past > 10 years related to antibiotics
#History of diverticulosis status post multiple bowel resections
- Held off on stool studies as per nurse, diarrhea has resolved
- Notably no diarrhea noted since admission, small formed stools as per nurse/staff, patient however perceives ongoing diarrhea though also acknowledges improvement from prior admission.
#Asymptomatic Klebsiella pneumoniae Bacteriuria
urinalysis suggestive but pt asymptomatic
monitor off abx as above
Doing well without antibiotics
#Hypertension
Continue amlodipine 5 mg at bedtime with hold parameters
#Hyperlipidemia
- Continue simvastatin 20 mg at bedtime
#Insomnia
-Continue home Restoril 30 mg at bedtime as needed
#Reported history of Hypothyroidism
Patient reported she was taken off meds years ago unsure why
TSH mildly elevated but T4 wnl
Follow up with primary care provider for repeat Thyroid function test in 1 mo.
#mitral valve prolapse
#History of mild AR
2D echo 06/13/2020: EF 60-65%, mild LVH, preserved systolic function, aortic sclerosis with mild AR,aneurysm of the ascending aorta 4.4 cm
#Aneurysm of the ascending aorta (4.4 cm in previous ECHO as above, 4.[address] as above)
Follow up with primary care provider for further surveillance work up as necessary.
Other PMH:
renal calculi
osteoarthritis
ovarian cysts
DVT prophylaxis
Subcu Lovenox
Full code
More than 30 minutes spent in discharge including
Final examination of the patient
Summarizing hospital stay
Instructions for continuing care to all relevant caregivers
Preparation of discharge records, prescriptions, and referral forms
Total time spent (in minutes): 43
Anticipated Discharge: Today
Subjective/Interval History
-
Date of Service: January 09, 2025
Patient was seen and examined. She denied any pain or any other complaints; overnight she had a fall; she did not hit her head or lose consciousness.
Objective Data
-
Labs:
Laboratory Results
01/09/25
05:41
WBC 5.5
Hgb 12.4
Hct 36.0 L
Plt Count 347
Sodium 134 L
Potassium 4.0
Chloride 103
Carbon Dioxide 25
BUN 13
Creatinine 0.8
Glucose 105 H
Calcium 9.2
Total Bilirubin 0.6
AST 19
ALT 11
Alkaline Phosphatase 57
Vital Signs:
Vital Signs
Temp Pulse Resp BP Pulse Ox
97.6 F 90 18 122/81 95
01/09/25 03:05 01/09/25 03:05 01/09/25 03:05 01/09/25 03:05 01/09/25 03:05
I&O
01/08/25 01/09/25 01/10/25
06:59 06:59 06:59
Intake Total 1852 / 1852 1200 / 1200
Output Total 550 / 550 200 / 200
Balance 1302 / 1302 1000 / 1000
--- NOTE | 2025-01-09 09:35 | W.PN.PUL3 ---
Today's Communication / Plan
-
Stable on RA, no new complaints
Encouraged OOB, PT today
Imodium for diarrhea
We can arrange OP FU for further testing
Discharge planning otherwise per team
Assessment
-
79-year-old female past medical history of recent COVID infection, prior history of C. difficile, diverticulosis status post multiple bowel resection, frequent UTIs, hypertension, hyperlipidemia, ANDREW presenting to with ongoing weakness, fatigue,
watery diarrhea and productive cough. �She was diagnosed with COVID infection 2 weeks ago and was treated with Paxlovid. �Symptoms have not improved. Vital signs unremarkable. �Not hypoxemic. �On examination she was noted to have rhonchi left lower
base.�Chest x-ray shows no radiographic evidence of pneumonia, acute pulmonary edema or pleural effusion. �CT chest with mild PNA, started on IV abx. PCT negative. She is stable on RA.
Mild pneumonia inferior segment lingula/endobronchial infection right lower lobe
Recent COVID illness
Diarrhea
Weakness, progressive
Bronchiectasis on CT
Incidental right upper lobe 6 mm pulmonary nodules
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
surgical excision of barium blockage in intestines
oophorectomy-right ovary (1972)
partial oophorectomy of left ovary with removal of endometriosis
Mixed hyperlipidemia
Hypertension
GERD
Osteoporosis
Gastroenteritis/IBS/Diverticulosis
Aortic insufficiency
Back Surgery
Appendectomy(1947)
CHOLECYSTECTOMY
Tonsillectomy
L4-L5 laminectomy(2015)
HYSTERECTOMY
Right knee surgery 12/2015
Lower back surgery 10/2021
Plan
No oxygen was needed on admission, currently saturating >90% on RA
Prior history of lung disease is NOT noted --she was never previously diagnosed with any lung disease
Was a former smoker for about 10 years, quit >40 years ago
Has not had symptoms before COVID, she feels it is already improving
Suspect patient has post COVID fatigue/SOB
She had COVID before and tolerated illness well, it did not cause long-lasting illness
CXR obtained indicating no acute disease
FU CT showing mild areas of TIB, micronodules, bronchiectasis--would not likely be contributing to SOB
Can arrange OP FU with PFTs for further clarity if she is already improving
We can try albuterol PRN --she notes this has been helpful
PCT negative, not likely PNA
Viral bronchitis cannot be ruled out
Diarrhea noted, continue PRN imodium
Prior ECHO results are reviewed indicating normal function
Not likely CHF
Smoking history noted--10 PYs
At risk for OLD
OP FU recommended
Weight loss measures recommended
Obesity likely contributing to respiratory symptoms
Will need outpatient pulmonary evaluation in our office for PFTs and 6MWT
Reviewed with patient
Risk factors assessed for underlying sleep disordered breathing also noted, recommend outpatient PSG/sleep evaluation
She is in agreement to discharge
We will arrange follow-up, info left in chart
Diagnostic Data
Chest X-Ray:
CT Scan: CT chest:
1. Mild pneumonia or peripheral endobronchial infection in the inferior segment of the lingula.
2. Mild peripheral endobronchial infection in the right lower lobe and probably in the right upper lobe with small sub-6 mm centrilobular pulmonary nodules. Atypical mycobacterial infection as a diagnostic possibility.
3. Varicoid bronchiectasis and scarring in the medial segment of the right middle lobe.
4. Mild emphysema in the right upper lobe.
5. Small pericardial effusion.
6. Severe calcific atherosclerotic plaque in the coronary arteries.
7. Fusiform ascending thoracic aortic aneurysm (4.1 cm diameter).
8. Small hiatal hernia.
9. Chronic superior endplate fracture of L1.
Echo: 06/13/20- 1. Mild concentric left ventricular hypertrophy with preserved systolic function, ejection fraction 60-65%
2. Mitral annular calcification, trace mitral regurgitation, thickened leaflets and normal left atrium
3. Aortic sclerosis with mild aortic regurgitation
4. Normal right heart with normal pulmonary artery pressure
5. Aneurysm of the ascending aorta, 4.4 cm
PFT's:
Reports and relevant images were personally reviewed.
Total time spent on this consultation __45__ minutes which includes review of history, physical exam, medications, laboratory data, personal review of imaging, extensive review of outpatient records, discussion with care team and respiratory therapy.
Subjective Data
-
Date of Service:
Date of Service: January 09, 2025
Chief Complaint: Pulmonary Follow Up
Subjective:
No new complaints, remains stable on RA
SOB is improving
Objective Data
Data Reviewed
Vital Signs / I&O / Oxygen:
Vital Signs
Temp Pulse Resp BP Pulse Ox
98.7 F 93 16 127/77 96
01/09/25 07:00 01/09/25 07:00 01/09/25 07:00 01/09/25 07:00 01/09/25 07:00
Intake and Output
01/08/25 01/09/25 01/10/25
06:59 06:59 06:59
Intake Total 1852 / 1852 1200 / 1200
Output Total 550 / 550 200 / 200
Balance 1302 / 1302 1000 / 1000
SaO2 96
Physical Exam
General: Comfortable and Other (NAD)
HEENT: Normocephalic, Anicteric and Moist Mucous Membranes
Cardiovascular: S1-S2 and Regular Rhythm
Respiratory: Clear and Non-Labored Respirations
GI: Soft, Non Distended and Non Tender
Neurology: Awake, Alert, Oriented and No Motor Deficits
Skin: Warm, Dry and Good Color
Labs/Micro/Reports
Lab Data
01/09/25 05:41
01/09/25 05:41
Microbiology
01/06/25 20:07 Urine Urine Culture - Final
Klebsiella pneumoniae
01/07/25 00:17 Nose MRSA Screen - Final
No Methicillin Resistant Staphylococcus aureus isolated.
01/06/25 20:07 Sputum Respiratory Culture - Final
01/06/25 20:07 Sputum Gram Stain - Final
01/06/25 10:26 Nasal Swab Influenza Types A & B (JAYE) - Final
Negative for Influenza A & B, NAAT
Negative results must be combined with clinical observations
and patient history.
Nucleic Acid Amplification test (NAAT)performed on the
[employer] platform.
[2025-01-09 11:00] VITALS: BP 134/80
[2025-01-09 11:37] VITALS: BP 134/80; PULSE 91; O2SAT 96
--- NOTE | 2025-01-09 12:20 | CM ---
CM following re: discharge planning.
Reviewed pt's chart, met with pt.
PT and OT evaluations noted - home PT/POT recommended. CM discussed it with the pt, she expressed her agreement. VN choice given. Pt preferred VN. A referral to [facility] made yesterday, pt is accepted for services.
Pt lives with at [facility] apartment and pt uses a walker as needed.
Discharge order noted. Pt is aware, expressed her agreement with discharge and pt stated she already scheduled w/c van transport with [facility] and they will pick her up at 2:00 p.m. Pt still OBS status.
Please fax discharge instructions to [facility] at [phone]
D/C plan: return back to her living arrangements at [facility] and family support.
== END 2025-01-09 14:00 | disposition home health service (06) ==
LOC: 2 NORTH 16:06
PROVIDERS: Clinical Nurse Specialist Family Health; Internal Medicine; ADMITTING PHYSICIAN Hospitalist; ATTENDING PHYSICIAN Hospitalist; EMERGENCY PHYSICIAN Emergency Medicine; FAMILY PHYSICIAN Internal Medicine; OTHER PHYSICIAN Internal Medicine
DX: J18.9 Pneumonia, unspecified organism (principal); I71.21 Aneurysm of the ascending aorta, without rupture; J43.9 Emphysema, unspecified; J47.0 Bronchiectasis with acute lower respiratory infection; R91.8 Other nonspecific abnormal finding of lung field; I10 Essential (primary) hypertension; I31.39 Other pericardial effusion (noninflammatory); K44.9 Diaphragmatic hernia without obstruction or gangrene; E66.9 Obesity, unspecified; W01.0XXA Fall on same level from slipping, tripping and stumbling without subsequent striking against object, initial encounter; Z11.52 Encounter for screening for COVID-19; Z68.29 Body mass index [BMI] 29.0-29.9, adult; Z86.16 Personal history of COVID-19; Z87.891 Personal history of nicotine dependence; E78.00 Pure hypercholesterolemia, unspecified; E03.9 Hypothyroidism, unspecified; D64.9 Anemia, unspecified; F41.9 Anxiety disorder, unspecified; G47.00 Insomnia, unspecified; G47.33 Obstructive sleep apnea (adult) (pediatric); R82.71 Bacteriuria; Z91.81 History of falling; Z79.899 Other long term (current) drug therapy; Z87.442 Personal history of urinary calculi; Z87.440 Personal history of urinary (tract) infections; Z86.19 Personal history of other infectious and parasitic diseases; K57.30 Diverticulosis of large intestine without perforation or abscess without bleeding; K58.9 Irritable bowel syndrome, unspecified; M81.0 Age-related osteoporosis without current pathological fracture
CPT/HCPCS: 71046; 71250; 73564; 80053; 81003; 81015; 82962; 83735; 84145; 84439; 84443; 85025; 87070; 87077; 87086; 87186; 87205; 87502; 87811; 93005; 96360; 96361; 97162; 97530; 99285; G0378

== ENCOUNTER 2025-01-14 11:32 | Emergency (ER) | payer OTHER, SELFPAY ==
[2025-01-14 11:36] VITALS: BP 143/77; BMI 30.1
[2025-01-14 12:00] VITALS: BP 133/77
[2025-01-14 12:00] LABS: Hematocrit 39.0 % (37.0-47.0); Hemoglobin 13.5 g/dL (12.0-16.0); Mean Corp Hgb Conc. 34.6 g/dL (33.0-37.0); Mean Corpuscular Volume 90.1 fL (81.0-99.0); Nucleated Red Blood Cells % 0 %; Platelet Count 326 10^3/uL (130-400); Red Cell Dist. Width 12.5 % (11.5-14.5)
[2025-01-14 12:20] LABS: ALT (SGPT) 13 U/L (0-35); AST (SGOT) 22 U/L (14-36); Albumin 4.4 g/dl (3.5-5.0); Alkaline Phosphatase 60 U/L (38-126); Blood Urea Nitrogen 14 mg/dl (7-17); Calcium 9.6 mg/dl (8.4-10.2); Carbon Dioxide 27 mmol/L (22-30); Chloride 104 mmol/L (98-107); Estimated Creatinine Clearance 60 ml/min; Glucose 107 mg/dl (70-99); Potassium 4.0 mmol/L (3.5-5.1); Sodium 138 mmol/L (135-145); Total Protein 7.5 g/dl (6.3-8.2); eGFR > 60.00
--- NOTE | 2025-01-14 12:38 | ED.GENMED ---
History of Present Illness
General
Chief Complaint: Bowel Problem
Source: patient
Exam Limitations: none
Time Seen by Provider: 01/14/25 12:13
Nursing documentation reviewed up to this point in time: agreed with
History of Present Illness
History of Present Illness:
Patient is an 79-year-old female with history of hypertension, hyperlipidemia who presents to the emergency department with intractable diarrhea. Patient reports having approximately 5�6 episodes of nonbloody diarrhea daily for the past 3 weeks.
Diarrhea began prior to patient's hospitalization for COVID and pneumonia. She also reports somewhat diffuse abdominal cramping.
She was discharged from the hospital on 01/09/2025 despite persistent diarrhea. Her PCP is concerned that she may have C. difficile which she apparently has had in the past. Patient states she feels extremely weak given persistent diarrhea. She
has very little appetite and is not able to eat/drink much.
She denies any fevers or episode of vomiting. No chest pain or shortness of breath. She states her cough has improved greatly. No urinary symptoms. She is not on any antibiotics currently.
Past History
Past History
ED Past Medical History: GERD, HTN, Hypercholesterolemia, Valvular disease and Other (Hyperlipidemia, hypertension, chronic bronchitis, diverticulosis, irritable bowel syndrome, kidney stones, osteoarthritis, colon polyps, ovarian cysts, urinary
tract infection, and C. difficile, mitral bowel prolapse )
ED Past Surgical History: Appendectomy, Cholecystectomy, Gynecological, Orthopedic, Tonsilectomy and Other (Multiple bowel resections)
Social History
Tobacco: Non-smoker
Alcohol: None
Drug: None
Personal:
Living: with family
Employment: Retired
Family History
Family History: Hypertension
Review of Systems
Review of Systems
Allergies reviewed?: Yes
All Other Systems: ROS reviewed and negative except as documented in HPI and ROS
Phy Exam
Physical Exam
Physical Exam:
Vitals: Patient's vital signs are stable. Afebrile
General: Patient appears in no distress
Skin: Warm and dry, no rashes or lesions
Head: Normocephalic, atraumatic
Eyes: Sclera nonicteric. EOMs intact. No nystagmus.
Throat: Protecting airway
Neck: Normal ROM, no cervical spine tenderness, no meningismus
Cardiac: Regular rate and rhythm, no murmurs.
Pulm: Normal respiratory effort, no wheezes, rales, rhonchi heard on exam
.
Abdomen: Abdomen soft. Mild diffuse tenderness. No rebound tenderness or guarding.
Extremities: No evidence of cyanosis or edema. Distal pulses intact
Neuro: AAOx3. Grossly intact.
Psychiatric: Normal affect.
Course
Orders/Labs/Results
Orders:
Orders
01/14/25 11:47
Complete Blood Count/With Diff Urgent
Comprehensive Metabolic Panel Urgent
Magnesium Urgent
01/14/25 12:36
Add On- LAB Urgent
Tests Added?: magnesium
CT Abd/pelvis W Iv Cont Urgent
Comment:
Reason For Exam: diffuse abdominal pain, diarrhea
0.9% Sodium Chloride 1000 ml [Nss] 1,000 ml IV BOLUS
Abnormal Lab Results
01/14/25
11:47
MCH 31.2 H pg
(27.0-31.0)
Monocytes % 9.4 H %
(1.7-9.3)
Glucose 107 H mg/dl
(70-99)
01/14/25 11:47
01/14/25 11:47
Vital Signs
Initial and Last Documented VS:
Initial Vital Signs
BP
143/77
01/14/25 11:36
Last Documented Vital Signs
Pulse Resp BP Pulse Ox
76 16 132/73 93
01/14/25 14:30 01/14/25 14:30 01/14/25 13:01 01/14/25 14:30
MDM/Problems Addressed
Differential Diagnosis Includes:
Not limited to: Viral gastroenteritis, colitis, C. difficile, occasion side effect, diverticulitis, acute dehydration, etc.
MDM/Problems Addressed:
79-year-old female presented to the ED with intractable, non-bloody diarrhea. She has a remote history of C. Diff infection and was recently hospitalized and treated with antibiotics. Given this history, C. diff is on the differential.
On exam, patient is hemodynamically stable, well-appearing. Mild diffuse abdominal tenderness noted without peritoneal signs. No evidence of significant dehydration.
Laboratory workup is unremarkable: no leukocytosis, no electrolyte abnormalities (including magnesium), and normal renal function. CT abdomen/pelvis obtained due to mild abdominal pain shows no acute intra-abdominal pathology.
Patient has received IV fluids in the ED and has remained clinically stable. Despite a 3.5-hour ED stay, she has not been able to provide a stool sample for testing. She is tolerating oral intake and ambulating/ Admission not indicated at this time,
as she appears well-hydrated and stable, with no concerning red flags for severe infection or complications.
Discussed case with her primary care provider (who had referred her to the ED). Plan is to discharge home with supportive care, bland diet, and outpatient follow-up. A stool collection kit and prescription for outpatient stool testing (including C.
diff) have been provided. Patient instructed to follow up closely with PCP and to return to ED for any worsening symptoms, signs of dehydration, or inability to tolerate oral intake.
Chronic conditions affecting care:
Hypertension, history of C. difficile
Acute Exacerbation and/or Progression of Chronic Illness:
N/A
*Radiology
Radiology exam reviewed: radiology read reviewed
*Pulse Oximetry
SaO2: 89
Oxygen Mode of Delivery: Room air
Patient hypoxic: no
*EKG
Interpreted by ED Provider?: NA
*Heat Treat Supervisor Interpretation
Rate: Heat Treat Supervisor- N/A
*Critical Care Note
Total Time (30-74mins, 75-104mins- exclusive of procedures): Not Applicable
Data Reviewed
Review of Other/Old Records Reveals: Discharge Summary (Discharge summary from 01/09/2025)
Patient Management
Discussion with other providers: PCP (Case discussed with patients PCP)
ED Attending Note
-
Portions of this chart may have been created with voice recognition software.� Occasional wrong word or��sound alike� substitutions may have occurred due to the inherent limitations of voice recognition software.
Discharge Plan
Departure
Patient Disposition: Home (Routine Discharge)
Date of Disposition: 01/14/25
Time of Disposition: 15:38
Patient with high blood pressure during this ER visit?: Yes
Condition: Good
Discharge Problem:
Diarrhea
Instructions: Diarrhea and Traveler's Diarrhea, Adult (DC), [place] diet, BLOOD PRESSURE
Prescriptions:
No Action
amlodipine 5 MG tablet
5 mg PO HS
simvastatin 20 MG tablet
20 mg PO HS
temazepam [Restoril] 30 MG capsule
30 mg PO HS
Patient Comments:
last filled 01/05/25 #30
dextromethorphan-guaifenesin 10-200 mg/5 mL Liquid
7.5 ml PO Q6H PRN (Reason: cough)
loperamide 2 mg tablet
2 mg PO Q6H PRN (Reason: loose stool) Qty: 14 0RF
Referrals:
Kwasi Dunn DO [Family Provider, Internal Medicine] - Follow up in 2-3 days
Activity Restrictions/Additional Instructions:
RETURN TO THE EMERGENCY DEPARTMENT ANY FEVER, CHILLS, ABDOMINAL PAIN, NAUSEA/VOMITING, INTRACTABLE DIARRHEA, SIGNS OF SEVERE DEHYDRATION INCLUDING WEAKNESS, DIFFICULTY WALKING, LACK OF URINARY PRODUCTION, OR ANY OTHER CONCERNS
- As discussed your lab work and CT scan showed no acute abnormalities in the emergency department today. You were given a liter of IV fluids.
- You were unable to provide a stool sample today in the emergency department. You were sent home with a collection kit and lab slip. If diarrhea persists, please ensure that you collect a stool sample and have it sent to a lab to ensure you do
not have C. difficile.
- It is important stay well-hydrated. Please follow a bland diet.
-Follow-up with your primary care provider next week for further evaluation/management and to ensure that your symptoms are improving.
Monitor your symptoms closely and return to the emergency department any acute worse or new symptoms or any other concerns
Interventions
Interventions:
*Risk Screen - Suicide Last Done: 01/14/25 11:41
*General Assessment Last Done: 01/14/25 11:41
*Neglect/Abuse Screening Last Done: 01/14/25 11:41
*ED COVID-19 Vaccine History Last Done: 01/14/25 11:39
*ED Influenza Vaccine History Last Done: 01/14/25 11:39
*Nursing Disposition Last Done: 01/14/25 16:28
HE-Hsuscn-Hwntcioadq Assessment Last Done: 01/14/25 13:00
Discharge Date and Time
Discharge Date/Time: 01/14/25 16:30
Print Language: LITHUANIAN
[2025-01-14 12:50] VITALS: BP 179/82
[2025-01-14 13:01] VITALS: BP 132/73
[2025-01-14 13:21] LABS: Magnesium 2.1 mg/dl (1.6-2.3)
== END 2025-01-14 16:30 | disposition home or self-care (01) ==
LOC: EMR 11:32
PROVIDERS: EMERGENCY PHYSICIAN Student in an Organized Health Care Education/Training Program; FAMILY PHYSICIAN Internal Medicine
DX: R19.7 Diarrhea, unspecified (principal); I10 Essential (primary) hypertension; E78.00 Pure hypercholesterolemia, unspecified; K21.9 Gastro-esophageal reflux disease without esophagitis; I38 Endocarditis, valve unspecified; K58.9 Irritable bowel syndrome, unspecified; M19.90 Unspecified osteoarthritis, unspecified site; Z82.49 Family history of ischemic heart disease and other diseases of the circulatory system; Z86.0100 Personal history of colon polyps, unspecified; Z86.19 Personal history of other infectious and parasitic diseases; Z87.440 Personal history of urinary (tract) infections; Z87.442 Personal history of urinary calculi; Z90.49 Acquired absence of other specified parts of digestive tract
CPT/HCPCS: 99284; 74177; 80053; 83735; 85025; Q9967